=== PATIENT | male | born 1995 | race Two or more races ===

== ENCOUNTER 2022-09-25 18:46 | Emergency (ER) | payer MEDICAID, OTHER ==
[~2022-09-25] VITALS: Ht 177.8 cm; Wt 77.3 kg
[2022-09-25] MEDS ORDERED: CYCL-837 PO (22:40)
[2022-09-25] MEDS ORDERED: IBUP-1456 PO (22:40)
[2022-09-25] MEDS ORDERED: DexAMETHasone SOD PHOS 4 MG/1ML SDV INJ IV ONE (23:45)
[2022-09-26 01:54] VITALS: BP 129/82
== END 2022-09-26 00:24 | disposition short-term general hospital (02) ==
LOC: EDBD 18:46 → ER 18:46
DX: S32.039A Unspecified fracture of third lumbar vertebra, initial encounter for closed fracture (principal); F17.210 Nicotine dependence, cigarettes, uncomplicated; F12.10 Cannabis abuse, uncomplicated; I10 Essential (primary) hypertension; M54.6 Pain in thoracic spine; W01.0XXA Fall on same level from slipping, tripping and stumbling without subsequent striking against object, initial encounter; Y93.89 Activity, other specified; Y92.89 Other specified places as the place of occurrence of the external cause; Y99.8 Other external cause status
CPT/HCPCS: 72128; 72131; 96374; 99285; J1100

== ENCOUNTER 2022-09-30 20:40 | Emergency (ER) | payer MEDICAID ==
[~2022-09-30] VITALS: Ht 177.8 cm; Wt 89.3 kg
[2022-10-01 02:05] VITALS: BP 134/83
[2022-10-01] MEDS ORDERED: IBUPROFEN 800 MG TAB PO ONE (02:45)
== END 2022-10-01 03:00 | disposition home or self-care (01) ==
LOC: ER 20:40
DX: S39.012A Strain of muscle, fascia and tendon of lower back, initial encounter (principal); M25.562 Pain in left knee; M79.672 Pain in left foot; M25.572 Pain in left ankle and joints of left foot; F41.9 Anxiety disorder, unspecified; F32.9 Major depressive disorder, single episode, unspecified; F20.9 Schizophrenia, unspecified; I10 Essential (primary) hypertension; F17.210 Nicotine dependence, cigarettes, uncomplicated; F15.90 Other stimulant use, unspecified, uncomplicated; Z98.890 Other specified postprocedural states; W18.39XA Other fall on same level, initial encounter; Y93.89 Activity, other specified; Y92.89 Other specified places as the place of occurrence of the external cause; Y99.8 Other external cause status
CPT/HCPCS: 72100; 73562; 73610; 73630

== ENCOUNTER 2023-01-24 20:09 | Inpatient (IN) | payer MEDICAID ==
[~2023-01-24] VITALS: Ht 177.8 cm; Wt 98.1 kg
[~2023-01-24 20:09] MED LIST: CYCL-611 PO; IBUP-1455 PO
[2023-01-24 20:55] LABS: Basophils # (auto) 0.1 10 ^3/uL (0-0.2); Basophils % (auto) 1.1 % (0.0-2.0); Eosinophils # (auto) 0.3 10 ^3/uL (0-0.8); Eosinophils % (auto) 3.3 % (0.0-7.0); Hemoglobin 15.7 g/dL (13.5-17.5); Lymphocytes % (auto) 25.4 % (10.0-50.0); Mean Corpuscular Hemoglobin 30.2 pg (28.0-32.0); Mean Corpuscular Hgb Conc. 33.5 g/dL (32.0-36.0); Mean Corpuscular Volume 90.1 fL (80.0-100.0); Monocytes # (auto) 0.6 10 ^3/uL (0-1.3); Neutrophils # (auto) 4.9 10 ^3/uL (1.6-8.6); Neutrophils % (auto) 62.2 % (37.0-80.0); Red Blood Cells 5.22 10^6/uL (4.5-5.90); Red Cell Distribution Width 13.9 % (11.8-14.3); White Blood Cell 7.8 10^3/uL (4.4-10.8)
[2023-01-24 21:10] LABS: Acetaminophen < 2.0 UG/ML (10.0-20.0); Alanine Aminotransferase 92 U/L (7-40); Albumin 4.8 g/dL (3.2-4.8); Alkaline Phosphatase 90 U/L (46-116); Anion Gap 9 (5-15); Aspartate Aminotransferase 44 U/L (13-40); BUN/Creatinine Ratio 7.8 (10.0-20.0); Bilirubin, Total 0.3 mg/dL (0.2-1.0); Blood Alcohol < 3.0 mg/dL (<10); Blood Urea Nitrogen 7 mg/dL (9-23); Calcium 9.7 mg/dL (8.5-10.1); Carbon Dioxide 25 mmol/L (20-30); Chloride 106 mmol/L (98-107); Glucose 133 mg/dL (74-106); Potassium 3.9 mmol/L (3.5-5.1); Sodium 140 mmol/L (136-145); Total Protein 7.6 g/dL (5.7-8.2)
[2023-01-24 21:20] LABS: Salicylate < 3.0 mg/dL (2.8-20.0)
[2023-01-24] MEDS ORDERED: LACTATED RINGER'S 2,000 ML IV ONE (21:45)
[2023-01-24] MEDS ORDERED: ASPirin 325 MG TAB PO ONE (21:45)
[2023-01-24 21:56] LABS: Urine Bacteria NONE SEEN /hpf (None Seen); Urine Blood Negative /uL (Negative); Urine Clarity Clear (Clear); Urine Color Yellow (Yellow); Urine Mucus FEW (None Seen); Urine Protein, UAD Negative (Negative); Urine Specific Gravity 1.018 (1.001-1.035); Urine Urobilinogen Normal (Negative); Urine WBC <1 /hpf (0 - 3)
[2023-01-24] MEDS ORDERED: IOHEXOL 350 MG/ML 100ML IJ ONE (22:19)
[2023-01-24 22:24] LABS: Amphetamine Screen, Urine Neg (NEGATIVE); Barbiturate Scree,Urine Neg (NEGATIVE); Benzodiazephine Screen, Urine Neg (NEGATIVE); Cannabinoid Screen, Urine Neg (NEGATIVE); Cocaine Screen, Urine Neg (NEGATIVE); Opiate Scree,Urine Neg (NEGATIVE); Phencyclidine Screen, Urine Neg (NEGATIVE)
[2023-01-24 23:34] VITALS: PULSE 86; RESP 24; O2SAT 94
[2023-01-25] MEDS ORDERED: ENOXAPARIN SOD 80 MG/0.8ML SYRINGE SC ONE (03:15)
[2023-01-25] MEDS ORDERED: NITROGLYCERIN 0.4 MG SL TAB SL PRN (06:45)
[2023-01-25] MEDS ORDERED: ACETAMINOPHEN 325 MG TAB PO PRN (06:45)
[2023-01-25] MEDS ORDERED: MORPHINE SULFATE INJ 2 MG/ml SYRG IV PRN (06:45)
[2023-01-25] MEDS ORDERED: ONDANSETRON HCL 4 MG/2 ML VIAL IV PRN (06:45)
[2023-01-25] MEDS ORDERED: TEMAZEPAM 15 MG CAP PO PRN (06:45)
[2023-01-25 07:42] VITALS: PULSE 65; RESP 15; O2SAT 95
[2023-01-25] MEDS ORDERED: ASPirin 81 mg TAB PO SCH (10:00)
[2023-01-25] MEDS: risperiDONE 1 MG TAB PO SCH ×2 (10:21→20:36)
[2023-01-25 13:45] VITALS: BP 102/55; PULSE 69; RESP 19; TEMP 97.9; O2SAT 95
[2023-01-25] MEDS ORDERED: BENZ0.5T19 PO (14:31)
[2023-01-25] MEDS ORDERED: RISP2TAB62 PO (14:31)
[2023-01-25 20:00] VITALS: PULSE 68; PULSE 75; RESP 16; O2SAT 98
[2023-01-26 07:30] VITALS: PULSE 75; TEMP 36.6
[2023-01-26] MEDS: risperiDONE 1 MG TAB PO SCH ×2 (08:55→22:38)
[2023-01-26 09:00] VITALS: BP 137/83; PULSE 85; RESP 18; TEMP 97.8; O2SAT 98
[2023-01-26 17:00] VITALS: BP 124/77; PULSE 73; RESP 19; TEMP 98; O2SAT 98
[2023-01-26 20:00] VITALS: PULSE 98
[2023-01-26 22:00] VITALS: BP 122/77; PULSE 77; RESP 19; TEMP 97.8; O2SAT 96
[2023-01-27 05:00] VITALS: BP 102/63; PULSE 75; RESP 19; TEMP 97.5; O2SAT 96
[2023-01-27] MEDS: risperiDONE 1 MG TAB PO SCH ×2 (08:12→08:22)
[2023-01-27 08:56] VITALS: TEMP 36.4
[2023-01-29 09:33] LABS: Hepatitis B Surface Antigen Negative (Negative)
[2023-01-29 09:54] LABS: Hepatitis C Antibody Negative (Negative)
== END 2023-01-27 10:15 | disposition home or self-care (01) | DRG 750 ==
LOC: ER 20:10 → TELE 01-25 06:38 → TELE-CENTR 01-25 12:50
PROVIDERS: ADMIT Nurse Practitioner; ATTEND Family Medicine
DX: F20.9 Schizophrenia, unspecified (principal); I21.A1 Myocardial infarction type 2; K76.0 Fatty (change of) liver, not elsewhere classified; E66.9 Obesity, unspecified; F31.9 Bipolar disorder, unspecified; F17.210 Nicotine dependence, cigarettes, uncomplicated; I10 Essential (primary) hypertension; Z68.31 Body mass index [BMI] 31.0-31.9, adult; Z85.6 Personal history of leukemia; Z98.1 Arthrodesis status; Z91.51 Personal history of suicidal behavior; Z56.0 Unemployment, unspecified
CPT/HCPCS: 36415; 71045; 71275; 80053; 80307; 80320; 80329; 81001; 84484; 85025; 86803; 87081; 87340; 93005; 93306; G0378

== ENCOUNTER 2023-09-13 20:19 | Emergency (ER) | payer MEDICAID ==
[~2023-09-13] VITALS: Ht 177.8 cm; Wt 94.0 kg
[~2023-09-13 20:19] MED LIST changes: +BENZ0.5T19 PO; +RISP2TAB62 PO
[2023-09-13 21:49] LABS: Urine Bacteria None Seen /hpf (None Seen)
[2023-09-13 21:57] LABS: Urine Blood Negative /uL (Negative); Urine Clarity Clear (Clear); Urine Color Colorless (Yellow); Urine Protein, UAD Negative (Negative); Urine Specific Gravity 1.012 (1.001-1.035); Urine Urobilinogen Normal (Negative); Urine WBC 1 /hpf (0 - 3); Urine pH 7.5 (5.0-9.0)
[2023-09-13 21:57] LABS: Basophils # (auto) 0.1 10 ^3/uL (0-0.2); Basophils % (auto) 0.8 % (0.0-2.0); Eosinophils # (auto) 0.5 10 ^3/uL (0-0.8); Eosinophils % (auto) 5.8 % (0.0-7.0); Hematocrit 45.4 % (41.0-53.0); Hemoglobin 15.5 g/dL (13.5-17.5); Lymphocytes # (auto) 2.5 10 ^3/uL (0.4-5.4); Lymphocytes % (auto) 27.5 % (10.0-50.0); Mean Corpuscular Hemoglobin 30.7 pg (28.0-32.0); Mean Corpuscular Hgb Conc. 34.2 g/dL (32.0-36.0); Monocytes # (auto) 0.7 10 ^3/uL (0-1.3); Monocytes % (auto) 8.4 % (0.0-12.0); Neutrophils # (auto) 5.1 10 ^3/uL (1.6-8.6); Neutrophils % (auto) 57.5 % (37.0-80.0); Nucleated Red Blood Cells % 0.1 %; Red Blood Cells 5.05 10^6/uL (4.5-5.90); Red Cell Distribution Width 13.2 % (11.8-14.3); White Blood Cell 8.9 10^3/uL (4.4-10.8)
[2023-09-13 22:07] LABS: Amphetamine Screen, Urine Neg (NEGATIVE); Barbiturate Scree,Urine Neg (NEGATIVE); Benzodiazephine Screen, Urine Neg (NEGATIVE); Cannabinoid Screen, Urine Neg (NEGATIVE); Opiate Scree,Urine Neg (NEGATIVE); Phencyclidine Screen, Urine Neg (NEGATIVE)
[2023-09-13 22:18] LABS: Acetaminophen < 2.0 UG/ML (10.0-20.0); Alanine Aminotransferase 106 U/L (7-40); Albumin 4.6 g/dL (3.2-4.8); Alkaline Phosphatase 99 U/L (46-116); Anion Gap 7 (5-15); Aspartate Aminotransferase 44 U/L (13-40); BUN/Creatinine Ratio 9.4 (10.0-20.0); Bilirubin, Total 0.3 mg/dL (0.2-1.0); Blood Alcohol 3.7 mg/dL (<10); Blood Urea Nitrogen 9 mg/dL (9-23); Carbon Dioxide 22 mmol/L (20-30); Chloride 108 mmol/L (98-107); Glucose 101 mg/dL (74-106); Potassium 3.9 mmol/L (3.5-5.1); Sodium 137 mmol/L (136-145); Total Protein 7.5 g/dL (5.7-8.2)
[2023-09-13 22:19] LABS: Salicylate < 3.0 mg/dL (2.8-20.0)
[2023-09-13 22:20] VITALS: PULSE 64; O2SAT 96
[2023-09-13 23:36] LABS: Cocaine Screen, Urine Neg (NEGATIVE)
[2023-09-14 00:30] VITALS: PULSE 64; O2SAT 96
[2023-09-14 04:30] VITALS: PULSE 64; O2SAT 96
[2023-09-14] MEDS: OLANZapine 5 MG TAB PO ONE (04:42)
[2023-09-14 06:49] VITALS: BP 140/82; PULSE 90; RESP 16; TEMP 98.2; O2SAT 97
== END 2023-09-14 07:25 | disposition home or self-care (01) ==
LOC: ER 20:19
DX: R44.0 Auditory hallucinations (principal); F41.9 Anxiety disorder, unspecified; I10 Essential (primary) hypertension; F31.9 Bipolar disorder, unspecified; F17.210 Nicotine dependence, cigarettes, uncomplicated; F12.10 Cannabis abuse, uncomplicated
CPT/HCPCS: 36415; 80053; 80307; 80320; 80329; 81001; 85025

== ENCOUNTER 2023-10-01 19:36 | Emergency (ER) | payer MEDICAID ==
[~2023-10-01] VITALS: Ht 177.8 cm; Wt 90.0 kg
[2023-10-01 20:18] LABS: Urine Bacteria None Seen /hpf (None Seen)
[2023-10-01 20:49] LABS: Urine Blood Negative /uL (Negative); Urine Clarity Clear (Clear); Urine Color Yellow (Yellow); Urine Mucus MODERATE (None Seen); Urine Protein, UAD TRACE (Negative); Urine Specific Gravity 1.028 (1.001-1.035); Urine Urobilinogen 2 mg/dL (Negative); Urine WBC 2 /hpf (0 - 3)
[2023-10-01 20:52] LABS: Basophils # (auto) 0.1 10 ^3/uL (0-0.2); Basophils % (auto) 0.4 % (0.0-2.0); Eosinophils # (auto) 0.2 10 ^3/uL (0-0.8); Hematocrit 45.4 % (41.0-53.0); Hemoglobin 15.4 g/dL (13.5-17.5); Lymphocytes # (auto) 1.8 10 ^3/uL (0.4-5.4); Lymphocytes % (auto) 12.1 % (10.0-50.0); Mean Corpuscular Hemoglobin 30.4 pg (28.0-32.0); Mean Corpuscular Volume 89.5 fL (80.0-100.0); Monocytes # (auto) 1.4 10 ^3/uL (0-1.3); Monocytes % (auto) 9.3 % (0.0-12.0); Neutrophils # (auto) 11.4 10 ^3/uL (1.6-8.6); Neutrophils % (auto) 77.2 % (37.0-80.0); Red Blood Cells 5.08 10^6/uL (4.5-5.90); Red Cell Distribution Width 13.2 % (11.8-14.3); White Blood Cell 14.8 10^3/uL (4.4-10.8)
[2023-10-01 21:04] LABS: Chloride 106 mmol/L (98-107); Potassium 3.8 mmol/L (3.5-5.1); Sodium 133 mmol/L (136-145)
[2023-10-01 21:05] LABS: Anion Gap 10 (5-15); Carbon Dioxide 17 mmol/L (20-30)
[2023-10-01 21:10] LABS: BUN/Creatinine Ratio 8.8 (10.0-20.0); Blood Urea Nitrogen 8 mg/dL (9-23); Glucose 109 mg/dL (74-106)
[2023-10-02] MEDS: SODIUM CHLORIDE 0.9% 1,000 ML IV ONE (01:01)
[2023-10-02] MEDS: METOCLOPRAMIDE HCL 5MG/ml INJ 2ml VIAL IV ONE (01:01)
[2023-10-02] MEDS: KETOROLAC TROMETH 30 MG/ML 1ML VIAL IV ONE (01:01)
[2023-10-02 01:02] VITALS: BP 141/95; PULSE 110; RESP 18; O2SAT 97
== END 2023-10-02 01:44 | disposition home or self-care (01) ==
LOC: ER 19:36
DX: G43.909 Migraine, unspecified, not intractable, without status migrainosus (principal); B34.9 Viral infection, unspecified; I10 Essential (primary) hypertension; F41.9 Anxiety disorder, unspecified; F20.9 Schizophrenia, unspecified; F31.9 Bipolar disorder, unspecified; F17.210 Nicotine dependence, cigarettes, uncomplicated; F15.90 Other stimulant use, unspecified, uncomplicated; Z79.899 Other long term (current) drug therapy
CPT/HCPCS: 36415; 80048; 81001; 85025; 96361; 96374; 96375; 99284; J1885; J2765; J7030

== ENCOUNTER 2024-06-24 19:57 | Inpatient (IN) | payer MEDICAID ==
[~2024-06-24] VITALS: Ht 175.3 cm; Wt 95.6 kg
[~2024-06-24 19:57] MED LIST changes: +BENZ0.5T PO; -BENZ0.5T19 PO
--- NOTE | 2024-06-24 20:15 | ED.PDOC ---
Jung. trauma (HPI) HPI Comments 29-year-old male came to the ER via EMS for back pain. Patient has history of schizophrenia and 1. Post surgical changes related to posterior fusion of L1- L5., 2. L3 vertebral body compression deformity with sclerosis, 60% height loss, and mild retropulsion. This is age indeterminant but felt to be chronic. States he other ground level fall earlier, slipped and fell backwards landing badly on his lower back and hip area Chief Complaint: Back Pain Time Seen by MD: 20:37 Primary Care Provider: NONE Reviewed notes: Career Development Specialist Notes Allergies: Coded Allergies: NO KNOWN ALLERGIES (Unverified , 09/25/22) Home Meds Active Scripts Gabapentin (Once-Daily) (Gabapentin) 300 Mg Tab, 300 MG PO Q6HP PRN, #60 TAB Prov:MIK LOWRY MD 06/25/24 Cyclobenzaprine HCl (Cyclobenzaprine Hydrochlo) 10 Mg Tab, 1 TAB PO Q8HR, #15 TAB As needed for muscle spasm Prov:BHAVANI FERRARA NEUROPSYCHOLOGY DIRECTOR 01/14/23 Ibuprofen Micronized (Ibuprofen) 800 Mg Tab, 1 TAB PO Q8HR, #30 TAB As needed for pain take it with food Prov:BHAVANI FERRARA Q NEUROPSYCHOLOGY DIRECTOR 01/14/23 Reported Medications Benztropine Mesylate (Benztropine Mesylate) 0.5 Mg Tab, 1 TAB PO 01/25/23 Risperidone (Risperidone) 2 Mg Tab, 1 TAB PO 01/25/23 Information Source: Patient, Emergency Med Personnel Mode of Arrival: EMS Severity: Moderate Timing: Hours Duration: Since onset Location: Back Mechanism: Fall Past Medical History PAST MEDICAL HISTORY: Anxiety, Depression, HTN, Schizophrenia Past Medical History (Other): 1. Post surgical changes related to posterior fusion of L1-L5. 2. L3 vertebral body compression deformity with sclerosis, 60% height loss, and mild retropulsion. This is age indeterminant but felt to be chronic. Surgical History: Denies all surgeries Surgical History (Other): Back surgery Family History Family History: Reviewed,noncontributory to illness Social History Smoker: Cigarettes, Less Than 1 Pack/Day Alcohol: Denies ETOH Use Drugs: Marijuana Lives In: Home Constitutional: denies: chills, diaphoresis, fatigue, fever, malaise, sweats, weakness, others EENTM: denies: blurred vision, double vision, ear bleeding, ear discharge, ear drainage, ear pain, ear ringing, eye pain, eye redness, hearing loss, mouth pain, mouth swelling, nasal discharge, nose bleeding, nose congestion, nose pain, photophobia, tearing, throat pain, throat swelling, voice changes, others Respiratory: denies: cough, hemoptysis, orthopnea, SOB at rest, shortness of breath, SOB with excertion, stridor, wheezing, others Cardiovascular: denies: chest pain, dizzy spells, diaphoresis, Dyspnea on exertion, edema, irregular heart beat, left arm pain, lightheadedness, palpitations, PND, syncope, others Gastrointestinal: denies: abdomen distended, abdominal pain, blood streaked bowels, constipated, diarrhea, dysphagia, difficulty swallowing, hematemesis, melena, nausea, poor appetite, poor fluid intake, rectal bleeding, rectal pain, vomiting, others Genitourinary: denies: burning, dysuria, flank pain, frequency, hematuria, incontinence, penile discharge, penile sore, pain, testicle pain, testicle swelling, urgency, others Neurological: denies: dizziness, fainting, headache, left sided numbness, left sided weakness, numbness, paresthesia, pre-existing deficit, right sided numbness, right sided weakness, seizure, speech problems, tingling, tremors, weakness, others Musculoskeletal: reports: back pain; denies: gout, joint pain, joint swelling, muscle pain, muscle stiffness, neck pain, others Integumetry: denies: bruises, change in color, change in hair/nails, dryness, laceration, lesions, lumps, rash, wounds, others Allergic/Immunocompromised: denies: Difficulty Healing, Frequent Infections, Hives, Itching, others Hematologic/Lymphatic: denies: anemia, blood clots, easy bleeding, easy bruising, swollen glands, others Endocrine: denies: excessive hunger, excessive sweating, excessive thirst, excessive urination, flushing, intolerance to cold, intolerance to heat, unexplained weight gain, unexplained weight loss, others Psychiatric: reports: schizophrenia; denies: anxiety, bipolar disorder, depression, hopeless, panic disorder, sleepless, suicidal, others Physical Exam General Appearance: No Apparent Distress, Normal HEENT: Normal ENT Inspection, Pharynx Normal, TMs Normal Neck: Full Range of Motion, Non-Tender, Normal, Normal Inspection Respiratory: Chest Non-Tender, Lungs Clear, No Accessory Muscle Use, No Respiratory Distress, Normal Breath Sounds Cardiovascular: No Edema, No JVD, No Murmur, No Gallop, Normal Peripheral P ulses, Regular Rate/Rhythm Breast Exam: Deferred Gastrointestinal: No Organomegaly, Non Tender, No Pulsatile Mass, Normal Bowel Sounds, Soft Genitalia: Deferred Pelvic: Deferred Rectal: Deferred Extremities: No calf tenderness, Normal capillary refill, Normal inspection, Normal range of motion, Non-tender, No pedal edema Musculoskeletal : Apperance: Normal Neurologic: Alert, curing oven attendant II-XII nml as Tested, No Motor Deficits, Normal Affect, Normal Mood, No Sensory Deficits Cerebellar Function: Normal Reflexes: Normal Skin: Dry, Normal Color, Warm Lymphatic: No Adenopathy Was a procedure done? Was a procedure done?: No Differential Diagnosis Multiple Trauma: Fractures, Spine Injury Neck Injury: Spinal Cord Injury X-Ray, Labs, Meds, VS Vital Signs Date Time Temp Pulse Resp B/P (MAP) Pulse Ox O2 Delivery O2 Flow Rate FiO2 06/25/24 00:47 98 18 97 Room Air* 0 21 06/25/24 00:47 98.2 98 18 127/85 (99) 97 98.2 06/24/24 20:06 98.1 102 20 148/92 (110) 98 98.1 Current Medications Medications (Trade) Dose Ordered Sig/Rosalie Route Start Time Stop Time Status Last Admin Ibuprofen (Motrin Tablet) 400 mg ONCE ONCE PO 06/24/24 20:15 06/24/24 20:16 DC 06/25/24 00:19 Acetaminophen/ Hydrocodone Bitart (Benedicta 10/325MG Tab) 1 tab ONCE ONCE PO 06/25/24 00:45 06/25/24 00:46 DC 06/25/24 01:21 Time of 1ST Reevaluation: 02:31 Reevaluation 1ST: Unchanged Patient Education/Counseling: Diagnosis, Treatment Family Education/Counseling: No Family Present Departure 1 Departure Time of Disposition: 02:31 Impression: Primary Impression: Lumbar sprain Additional Impressions: Lumbar compression fracture Schizophrenia Disposition: 01 HOME / SELF CARE / HOMELESS Condition: Stable e-Prescriptions Gabapentin (Once-Daily) (Gabapentin) 300 Mg Tab 300 MG PO Q6HP PRN, #60 TAB Prov: MIK LOWRY MD 06/25/24 Discharged With: Self Comments Low Back Pain After Ground-Level Fall Chief Complaint: Low back pain after fall History of Present Illness: 29-year-old male with history of schizophrenia and previous lumbar vertebral compression fracture presents to the ED with complaints of low back pain following a ground-level trip and fall that occurred last night. Patient reports ongoing back discomfort on reevaluation and has requested social work consultation. Review of Systems: Limited review of systems due to nature of presentation Musculoskeletal: Low back pain Neurological: Alert and oriented All other systems reviewed and negative Past Medical History: Schizophrenia Previous lumbar vertebral compression fracture Imaging and Other Relevant Results: Lumbar spine X-rays: No acute pathology identified Previous compression fracture noted Medical Decision Making: Summary Statement: 29-year-old male with history of schizophrenia and previous compression fracture presents with low back pain after ground-level fall Problem List: 1. Low back pain, 2. History of vertebral compression fracture, 3. Schizophrenia Differential Diagnosis: Acute vertebral fracture, Muscle strain, Exacerbation of chronic back pain, Spinal cord injury ED Course: Patient evaluated with spinal imaging showing no acute pathology. Plan for overnight observation and social work evaluation in morning. Assessment and Plan: 1. Low Back Pain: - Imaging reveals no acute pathology - Continue observation overnight - Pain management as needed 2. Functional Assessment: - Social work consultation planned for morning to evaluate ADLs - Will determine disposition based on functional assessment Billing Information: ICD-10: M54.5 - Low back pain ICD-10: W01.0XXA - Fall on same level from slipping, tripping and stumbling ICD-10: F20.9 - Schizophrenia, unspecified ICD-10: M48.50XA - History of vertebral compression fracture Critical Care Note Critical Care Time?: No Stability Stability form required: No Heart Score Heart Score: Heart Score Response (Comments) Value History N/A 0 EKG N/A 0 Age N/A 0 Risk Factors N/A 0 Troponin N/A 0 Total 0 I personally scribed for MIK LOWRY MD ([email or web address]) on 06/24/24 at 20:15. Electronically submitted by Kervin Yusuf ([facility]). I personally scribed for MIK LOWRY MD ([email or web address]) on 06/24/24 at 20:37. Electronically submitted by Kervin Yusuf ([email or web address]). MIK LOWRY MD Jun 24, 2024 20:15
--- NOTE | 2024-06-24 22:25 | DVH ---
XY PELVIS AP June 24, 2024 HISTORY: pain s/p fall TECHNICAL DATA: Frontal view was obtained of the pelvis. COMPARISON: None FINDINGS: There is no abnormality involving the bony pelvis. The sacroiliac joints appear normal. There is no a bnormality of the symphysis pubis. The hip joint spaces are symmetric. The proximal femurs demonstrat e no abnormality. IMPRESSION: 1. No acute fracture or dislocation of the pelvis.
--- NOTE | 2024-06-24 22:30 | DVH ---
EXAM: XY LUMBAR SPINE 3 VIEW HISTORY: pain s/p fall COMPARISON: XY LUMBAR SPINE 3 VIEW on DOS: 01/14/23, XY LUMBAR SPINE 3 VIEW on DOS: 10/01/22 TECHNIQUE: AP and lateral views of the lumbar spine and spot lateral of the lumbosacral junction were performed. Findings/ IMPRESSION: Posterior fixation hardware of the lumbar spine from L1-L5. [id number] compression deformity i nvolving the superior endplate of L3 which is unchanged from prior.
[2024-06-25] VITALS (7 sets, daily range): BP systolic 100–127; BP diastolic 45–91; PULSE 84–98; RESP 15–18; TEMP 97.5–98.7; O2SAT 97–98
[2024-06-25] MEDS ORDERED: GABA300T4 PO (00:09)
[2024-06-25] MEDS: IBUPROFEN 400 MG TAB PO ONE (00:19)
[2024-06-25] MEDS: HYDROcodone-ACET 10/325MG TAB PO ONE (01:21)
--- NOTE | 2024-06-25 09:38 | ED.PDOC ---
Departure 1 Departure Time of Disposition: 09:38 (Patient with intractable pain and inability to ambulate. We will admit patient for further workup) Impression: Primary Impression: Lumbar sprain Qualified Codes: S33.5XXA - Sprain of ligaments of lumbar spine, initial encounter Additional Impressions: Schizophrenia Qualified Codes: F20.9 - Schizophrenia, unspecified Lumbar compression fracture Qualified Codes: S32.030A - Wedge compression fracture of third lumbar vertebra, initial encounter for closed fracture Disposition: ADMITTED INPATIENT Admit to: Med Surg Condition: Serious Additional Instructions: Follow up with your primary physician Return to the ED for any worsening symptoms or concerns e-Prescriptions Gabapentin (Once-Daily) (Gabapentin) 300 Mg Tab 300 MG PO Q6HP PRN, #60 TAB Prov: MIK LOWRY MD 06/25/24 Discharged With: OK Sharp MD Jun 25, 2024 09:38
[2024-06-25 10:23] LABS: Basophils # (auto) 0 10 ^3/uL (0-0.2); Basophils % (auto) 0.6 % (0.0-2.0); Eosinophils # (auto) 0.3 10 ^3/uL (0-0.8); Eosinophils % (auto) 3.4 % (0.0-7.0); Hematocrit 43.7 % (41.0-53.0); Lymphocytes # (auto) 1.9 10 ^3/uL (0.4-5.4); Lymphocytes % (auto) 25.3 % (10.0-50.0); Mean Corpuscular Hemoglobin 30.6 pg (28.0-32.0); Mean Corpuscular Hgb Conc. 34.3 g/dL (32.0-36.0); Mean Corpuscular Volume 89.3 fL (80.0-100.0); Monocytes # (auto) 0.7 10 ^3/uL (0-1.3); Monocytes % (auto) 9.1 % (0.0-12.0); Neutrophils # (auto) 4.5 10 ^3/uL (1.6-8.6); Neutrophils % (auto) 61.6 % (37.0-80.0); Platelet Count (auto) 243 10^3/uL (140-450); Red Blood Cells 4.89 10^6/uL (4.5-5.90); Red Cell Distribution Width 13.4 % (11.8-14.3); White Blood Cell 7.3 10^3/uL (4.4-10.8)
[2024-06-25 10:34] LABS: Chloride 106 mmol/L (98-107); Potassium 3.9 mmol/L (3.5-5.1); Sodium 141 mmol/L (136-145)
[2024-06-25 10:35] LABS: Anion Gap 7 (5-15); Calcium 9.7 mg/dL (8.7-10.4); Carbon Dioxide 28 mmol/L (20-31)
[2024-06-25 10:40] LABS: BUN/Creatinine Ratio 10.6 (10.0-20.0); Blood Urea Nitrogen 10 mg/dL (9-23); Glucose 90 mg/dL (74-106)
[2024-06-25] MEDS ORDERED: ONDANSETRON HCL 4 MG/2 ML VIAL IV PRN (11:30)
[2024-06-25] MEDS ORDERED: HYDROcodone-ACET 5/325MG TAB PO PRN (11:30)
[2024-06-25] MEDS ORDERED: DOCUSATE SOD 100 MG CAP PO PRN (11:30)
[2024-06-25] MEDS ORDERED: ACETAMINOPHEN 325 MG TAB PO PRN (11:30)
--- NOTE | 2024-06-25 11:46 | DVHHP2 ---
History of Present Illness Reason for Visit: Back pain History of Present Illness Yefri Evangelista is a 29-year-old male with past medical history of chronic back pain, and schizophrenia, who came in for back pain. On assessment the patient states he came in for paralysis and numbness tingling to his back and bilateral legs, worse on the right. I asked him to push on my hands and lift his legs and he did both without any trouble. He is able to reposition in the bed on his own without any difficulty or discomfort. Patient is not consistent on his medical history. States he is not taking any medications at this time, that he may have diabetes, but he can not remember. Psych: Schizophrenia Musculoskeletal: Chronic low back pain Past Surgical History: Other (back surgery) Smoke: <1 pack per day ALCOHOL: none Drugs: None Lives: with Family Domestic Violence: Neg Review of Systems Constitutional: No: Fever, Chills, Sweats, Weakness, Malaise, Other Eyes: No: Pain, Vision change, Conjunctivae inflammation, Eyelid inflammation, Other, Redness ENT: No: Ear pain, Ear discharge, Nose pain, Nose discharge, Nose congestion, Mouth pain, Mouth swelling, Throat pain, Throat swelling, Other Respiratory: No: Cough, Dry, Shortness of breath, SOB with excertion, Wheezing, Hemoptysis, Pleuritic Pain, Sputum, Wheezing, Other Cardiovascular: No: Chest Pain, Palpitations, Orthopnea, Paroxysmal Noc. Dyspnea, Edema, Lt Headedness, Other Gastrointestinal: No: Nausea, Vomiting, Abdominal Pain, Diarrhea, Constipation, Melena, Hematochezia, Other Genitourinary: No Dysuria, No Frequency, No Incontinence, No Hematuria, No Retention, No Other Musculoskeletal: back pain; No: other, neck pain, shoulder pain, arm pain, hand pain, leg pain, foot pain Skin: No: Rash, Lesions, Jaundice, Bruising, Other Neurological: No: Weakness, Numbness, Incoordination, Change in speech, Confusion, Seizures, Other Allergies: Coded Allergies: NO KNOWN ALLERGIES (Unverified , 09/25/22) Exam Vital Signs Vital Signs Date Time Temp Pulse Resp B/P (MAP) Pulse Ox O2 Delivery O2 Flow Rate FiO2 06/25/24 08:52 97.6 89 15 104/54 (71) 97 97.6 06/25/24 07:30 Room Air* 0 21 General Appearance: Alert, Oriented X3, Cooperative, No acute distress HEENT: Atraumatic, PERRLA Respiratory: Clear to auscultation Cardiovascular: Regular rate, Normal S1, Normal S2 Abdominal: Normal bowel sounds, Soft, No tenderness Extremities: No clubbing, No cyanosis, No edema, Normal pulses, No tenderness/swelling Skin: No rashes, No breakdown, No significant lesion Neuro: Normal speech, Strength at 5/5 X4 ext, Normal tone Psych/Mental Status: Mental status NL, Mood NL Labs/Xrays Labs Test 06/25/24 10:02 Range/Units White Blood Count 7.3 4.4-10.8 10^3/uL Red Blood Count 4.89 4.5-5.90 10^6/uL Hemoglobin 15.0 13.5-17.5 g/dL Hematocrit 43.7 41.0-53.0 % Mean Corpuscular Volume 89.3 80.0-100.0 fL Mean Corpuscular Hemoglobin 30.6 28.0-32.0 pg Mean Corpuscular Hemoglobin Concent 34.3 32.0-36.0 g/dL Red Cell Distribution Width 13.4 11.8-14.3 % Platelet Count 243 140-450 10^3/uL Mean Platelet Volume 8.1 6.9-10.8 fL Neutrophils (%) (Auto) 61.6 37.0-80.0 % Lymphocytes (%) (Auto) 25.3 10.0-50.0 % Monocytes (%) (Auto) 9.1 0.0-12.0 % Eosinophils (%) (Auto) 3.4 0.0-7.0 % Basophils (%) (Auto) 0.6 0.0-2.0 % Neutrophils # (Auto) 4.5 1.6-8.6 10 ^3/uL Lymphocytes # (Auto) 1.9 0.4-5.4 10 ^3/uL Monocytes # (Auto) 0.7 0-1.3 10 ^3/uL Eosinophils # (Auto) 0.3 0-0.8 10 ^3/uL Basophils # (Auto) 0 0-0.2 10 ^3/uL Nucleated Red Blood Cells 0.0 % Sodium Level 141 136-145 mmol/L Potassium Level 3.9 3.5-5.1 mmol/L Chloride Level 106 98-107 mmol/L Carbon Dioxide Level 28 20-31 mmol/L Anion Gap 7 5-15 Blood Urea Nitrogen 10 9-23 mg/dL Creatinine 0.94 0.700-1.30 mg/dL Glomerular Filtration Rate Calc 111 >90 mL/min BUN/Creatinine Ratio 10.6 10.0-20.0 Serum Glucose 90 74-106 mg/dL Calcium Level 9.7 8.7-10.4 mg/dL XY PELVIS AP June 24, 2024 FINDINGS: There is no abnormality involving the bony pelvis. The sacroiliac joints appear normal. There is no abnormality of the symphysis pubis. The hip joint spaces are symmetric. The proximal femurs demonstrate no abnormality. IMPRESSION: 1. No acute fracture or dislocation of the pelvis. EXAM: XY LUMBAR SPINE 3 VIEW Findings/ IMPRESSION: Posterior fixation hardware of the lumbar spine from L1-L5. [id number] compression deformity involving the superior endplate of L3 which is unchanged from prior. Assessment/Plan Assessment/Plan Assessment: Lumbar compression fracture, Intractable pain, Schizophrenia, Plan: Admit to Med-Surg, Pain management, Tele psych consult, Physical therapy consult, Plan discussed with: Patient My Orders Orders - RAJAT GREEN Procedure Category Date Status Time Soc Telemed Psych CONS 06/25/24 Transmitted Consult 11:23 Admit ADMIT 06/25/24 Transmitted 11:23 Code Status CODE 06/25/24 Transmitted 11:23 2 Gm Sodium Diet DIET 06/25/24 Transmitted Lunch Sodium Chloride Lock PHA 06/25/24 Transmitted (Saline Lock Ns) 14:00 Hydrocodone-Acet PHA 06/25/24 Transmitted 5/325mg Tab ([place] 11:30 Ondansetron Hcl PHA 06/25/24 Transmitted (Zofran) 11:30 Docusate Sodium PHA 06/25/24 Transmitted Capsule (Colace 11:30 Complete Blood Count LAB 06/26/24 Verified 04:00 Comprehensive LAB 06/26/24 Verified Metabolic Panel 04:00 Pt Request For Service PT 06/25/24 Transmitted 11:23 Condition: Serious JACLYN 06/25/24 Transmitted 11:23 Acetaminophen Tablet PHA 06/25/24 Transmitted (Tylenol Tablet) 11:30 Date of Service: Jun 25, 2024 Billing Provider: RAJAT GREEN Common Visit Codes: [id number] INP/OBS CARE (MOD) RAJAT GREEN OCEAN LIFEGUARD SPECIALIST Jun 25, 2024 11:46
[2024-06-25] MEDS: SODIUM CHLOR 0.9% PF (SALINE LOCK) 10ML VIAL/SYR IV SCH (14:00)
[2024-06-26] VITALS (7 sets, daily range): BP systolic 98–144; BP diastolic 58–86; PULSE 65–97; RESP 16–20; TEMP 97.5–98.6; O2SAT 92–98
[2024-06-26 06:59] LABS: Albumin 4.1 g/dL (3.2-4.8); Alkaline Phosphatase 80 U/L (46-116); Anion Gap 6 (5-15); Aspartate Aminotransferase 35 U/L (13-40); BUN/Creatinine Ratio 11.5 (10.0-20.0); Blood Urea Nitrogen 11 mg/dL (9-23); Calcium 9.4 mg/dL (8.7-10.4); Carbon Dioxide 26 mmol/L (20-31); Glucose 95 mg/dL (74-106); Potassium 4.1 mmol/L (3.5-5.1); Sodium 140 mmol/L (136-145); Total Protein 6.5 g/dL (5.7-8.2)
[2024-06-26 07:00] LABS: Bilirubin, Total 0.5 mg/dL (0.2-1.0)
[2024-06-26 07:02] LABS: Basophils # (auto) 0.1 10 ^3/uL (0-0.2); Basophils % (auto) 0.7 % (0.0-2.0); Eosinophils # (auto) 0.4 10 ^3/uL (0-0.8); Eosinophils % (auto) 5.1 % (0.0-7.0); Hemoglobin 14.5 g/dL (13.5-17.5); Lymphocytes # (auto) 2.1 10 ^3/uL (0.4-5.4); Lymphocytes % (auto) 28.9 % (10.0-50.0); Mean Corpuscular Hemoglobin 31.4 pg (28.0-32.0); Mean Corpuscular Hgb Conc. 34.4 g/dL (32.0-36.0); Mean Corpuscular Volume 91.4 fL (80.0-100.0); Monocytes # (auto) 0.7 10 ^3/uL (0-1.3); Monocytes % (auto) 10.1 % (0.0-12.0); Neutrophils % (auto) 55.2 % (37.0-80.0); Nucleated Red Blood Cells % 0.1 %; Platelet Count (auto) 224 10^3/uL (140-450); Red Cell Distribution Width 13.4 % (11.8-14.3); White Blood Cell 7.2 10^3/uL (4.4-10.8)
[2024-06-26 07:06] LABS: Alanine Aminotransferase 69 U/L (7-40); Chloride 108 mmol/L (98-107)
--- NOTE | 2024-06-26 15:59 | DVHPN2 ---
Subjective Resuming the care of the patient from today onwards. 29-year-old male with a known history of chronic back pain with previous lumbar spine surgery L1 through 5 presented to the hospital after a fall found to have lumbar compression deformity at L3 level. Patient also has a known history of schizophrenia but currently not on any medications. Changes from previous H/P or p: No Changes Eyes: No Pain, No Vision change, No Conjunctivae inflammation, No Eyelid inflammation, No Other, No Redness ENT: No Ear pain, No Ear discharge, No Nose pain, No Nose discharge, No Nose congestion, No Mouth pain, No Mouth swelling, No Throat pain, No Throat swelling, No Other Cardiovascular: No Chest Pain, No Palpitations, No Orthopnea, No Paroxysmal Noc. Dyspnea, No Edema, No Lt Headedness, No Other Respiratory: No Cough, No Dry, No Shortness of breath, No SOB with excertion, No Wheezing, No Hemoptysis, No Pleuritic Pain, No Sputum, No Other Gastrointestinal: No Nausea, No Vomiting, No Abdominal Pain, No Diarrhea, No Constipation, No Melena, No Hematochezia, No Other Genitourinary: No Dysuria, No Frequency, No Incontinence, No Hematuria, No Retention, No Other Musculoskeletal: No other, No neck pain, No shoulder pain, No arm pain; back pain; No hand pain, No leg pain, No foot pain Skin: No Rash, No Lesions, No Jaundice, No Bruising, No Other Objective Vitals Vital Signs Date Time Temp Pulse Resp B/P (MAP) Pulse Ox O2 Delivery O2 Flow Rate FiO2 06/26/24 13:30 97.6 81 16 142/86 (104) 97 97.6 06/26/24 08:00 Room Air* 0 21 Intake/Output Intake and Output 06/26/24 07:00 Intake Total 1475 ml Output Total 0 ml Balance 1475 ml Intake Oral 1475 ml Output Urine Total 0 ml # Voids 1 Exam HEENT pupils are reactive Neck is supple CV is S1-S2 regular rate and rhythm Respiratory bilateral Diminished breath sounds bases GI positive bowel sound Extremity no pedal edema 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 Medications Current Medications Medications Dose Ordered Sig/Rosalie Route Start Time Stop Time Status Last Admin Dose Admin Sodium Chloride 10 ml Q8HR IV 06/25/24 14:00 06/26/24 14:00 10 ML Acetaminophen/ Hydrocodone Bitart 1 tab Q4HP PRN PO 06/25/24 11:30 Ondansetron HCl 4 mg Q4HP PRN IV 06/25/24 11:30 Docusate Sodium 100 mg BIDPRN PRN PO 06/25/24 11:30 Acetaminophen 650 mg Q6HP PRN PO 06/25/24 11:30 Laboratory Results Laboratory Tests 06/26/24 06:03 Chemistry Test 06/26/24 06:03 Albumin 4.1 g/dL (3.2-4.8) Calcium Level 9.4 mg/dL (8.7-10.4) Total Protein 6.5 g/dL (5.7-8.2) LFT Test 06/26/24 06:03 Alanine Aminotransferase (ALT) 69 U/L (7-40) H Alkaline Phosphatase 80 U/L (46-116) Aspartate Amino Transferase (AST) 35 U/L (13-40) Total Bilirubin 0.5 mg/dL (0.2-1.0) Assessment/Plan Assessment/Plan 29-year-old male with known history of chronic back pain presented to the hospital with intractable back there found to have 1. Acute on chronic back pain with L3 compression deformity 2. Previous history of lumbar spine surgery L1 through 5 3. Schizophrenia 4. Noncompliance -continue pain meds as needed, tele psych evaluation -consult spine surgery. Plan discussed with: Patient, Other My Orders Orders - SUSHANT FLORES MD Procedure Category Date Status Time Consultdr. Jose Martin CONS 06/26/24 Transmitted [place](Spine) 14:03 Date of Service: Jun 26, 2024 Billing Provider: SUSHANT FLORES MD Common Visit Codes: [id number] INP/OBS CARE(MOD), NOT BILLABLE SUSHANT FLORES MD Jun 26, 2024 15:59
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
[2024-06-26] MEDS: risperiDONE 1 MG TAB PO ONE (20:02)
[2024-06-27] VITALS (8 sets, daily range): BP systolic 108–130; BP diastolic 62–82; PULSE 74–106; RESP 18–20; TEMP 97.4–98.8; O2SAT 95–99
[2024-06-27] MEDS: risperiDONE 1 MG TAB PO SCH (09:46)
--- NOTE | 2024-06-27 18:01 | DVHPN2 ---
Subjective 29-year-old male with a known history of chronic back pain with previous lumbar spine surgery L1 through 5 presented to the hospital after a fall found to have lumbar compression deformity at L3 level. Patient also has a known history of schizophrenia but currently not on any medications. Tele psych recommended 5150 hold because of patient's agitation and acute psychosis with schizophrenia. Changes from previous H/P or p: No Changes Eyes: No Pain, No Vision change, No Conjunctivae inflammation, No Eyelid inflammation, No Other, No Redness ENT: No Ear pain, No Ear discharge, No Nose pain, No Nose discharge, No Nose congestion, No Mouth pain, No Mouth swelling, No Throat pain, No Throat swelling, No Other Cardiovascular: No Chest Pain, No Palpitations, No Orthopnea, No Paroxysmal Noc. Dyspnea, No Edema, No Lt Headedness, No Other Respiratory: No Cough, No Dry, No Shortness of breath, No SOB with excertion, No Wheezing, No Hemoptysis, No Pleuritic Pain, No Sputum, No Other Gastrointestinal: No Nausea, No Vomiting, No Abdominal Pain, No Diarrhea, No Constipation, No Melena, No Hematochezia, No Other Genitourinary: No Dysuria, No Frequency, No Incontinence, No Hematuria, No Retention, No Other Musculoskeletal: No other, No neck pain, No shoulder pain, No arm pain; back pain; No hand pain, No leg pain, No foot pain Skin: No Rash, No Lesions, No Jaundice, No Bruising, No Other Objective Vitals Vital Signs Date Time Temp Pulse Resp B/P (MAP) Pulse Ox O2 Delivery O2 Flow Rate FiO2 06/27/24 13:00 97.4 82 18 125/62 (83) 97 97.4 06/27/24 08:00 Room Air* 0 21 Intake/Output Intake and Output 06/27/24 07:00 Intake Total 1200 ml Balance 1200 ml Intake Oral 1200 ml # Voids 6 # Bowel Movements 1 Medications Current Medications Medications Dose Ordered Sig/Rosalie Route Start Time Stop Time Status Last Admin Dose Admin Sodium Chloride 10 ml Q8HR IV 06/25/24 14:00 06/26/24 14:00 10 ML Acetaminophen/ Hydrocodone Bitart 1 tab Q4HP PRN PO 06/25/24 11:30 Ondansetron HCl 4 mg Q4HP PRN IV 06/25/24 11:30 Docusate Sodium 100 mg BIDPRN PRN PO 06/25/24 11:30 Acetaminophen 650 mg Q6HP PRN PO 06/25/24 11:30 Risperidone 2 mg DAILY PO 06/27/24 10:00 06/27/24 09:46 2 MG Laboratory Results Laboratory Tests 06/26/24 06:03 Assessment/Plan Assessment/Plan 29-year-old male with known history of chronic back pain presented to the hospital with intractable back there found to have 1. Acute on chronic back pain with L3 compression deformity no indication for any intervention as per spine surgery 2. Previous history of lumbar spine surgery L1 through 5 3. Schizophrenia 4. Noncompliance -continue pain meds as needed, tele psych evaluation appreciated who recommended 5150 hold -patient was medically as well as by spine surgery cleared to be discharged to acute care facility in the inpatient psychiatry. Plan discussed with: Patient My Orders Orders - SUSHANT FLORES MD Procedure Category Date Status Time Discharge DISCHARGE 06/27/24 Transmitted 17:56 Date of Service: Jun 27, 2024 Billing Provider: SUSHANT FLORES MD Common Visit Codes: [id number] INP/OBS CARE(MOD) SUSHANT FLORES MD Jun 27, 2024 18:01
[2024-06-28 01:00] VITALS: BP 121/67; PULSE 78; RESP 24; TEMP 97.7; O2SAT 96
[2024-06-28 05:00] VITALS: BP 110/54; PULSE 74; RESP 16; TEMP 97.6; O2SAT 96
[2024-06-28 09:00] VITALS: BP 135/75; PULSE 99; RESP 18; TEMP 97.6; O2SAT 97
[2024-06-28 13:00] VITALS: BP 120/65; PULSE 90; RESP 17; TEMP 97.5; O2SAT 98
--- NOTE | 2024-06-28 15:15 | DVHPN2 ---
Subjective 29-year-old male with a known history of chronic back pain with previous lumbar spine surgery L1 through 5 presented to the hospital after a fall found to have lumbar compression deformity at L3 level. Patient also has a known history of schizophrenia but currently not on any medications. Tele psych recommended 5150 hold because of patient's agitation and acute psychosis with schizophrenia. Patient's showed the the door the other day. Changes from previous H/P or p: No Changes Eyes: No Pain, No Vision change, No Conjunctivae inflammation, No Eyelid inflammation, No Other, No Redness ENT: No Ear pain, No Ear discharge, No Nose pain, No Nose discharge, No Nose congestion, No Mouth pain, No Mouth swelling, No Throat pain, No Throat swelling, No Other Cardiovascular: No Chest Pain, No Palpitations, No Orthopnea, No Paroxysmal Noc. Dyspnea, No Edema, No Lt Headedness, No Other Respiratory: No Cough, No Dry, No Shortness of breath, No SOB with excertion, No Wheezing, No Hemoptysis, No Pleuritic Pain, No Sputum, No Other Gastrointestinal: No Nausea, No Vomiting, No Abdominal Pain, No Diarrhea, No Constipation, No Melena, No Hematochezia, No Other Genitourinary: No Dysuria, No Frequency, No Incontinence, No Hematuria, No Retention, No Other Musculoskeletal: No other, No neck pain, No shoulder pain, No arm pain; back pain; No hand pain, No leg pain, No foot pain Skin: No Rash, No Lesions, No Jaundice, No Bruising, No Other Objective Vitals Vital Signs Date Time Temp Pulse Resp B/P (MAP) Pulse Ox O2 Delivery O2 Flow Rate FiO2 06/28/24 08:30 Room Air* 0 21 06/28/24 05:00 97.6 74 16 110/54 (37) 96 97.6 Intake/Output Intake and Output 06/28/24 07:00 Intake Total 2750 ml Balance 2750 ml Intake Oral 2750 ml # Voids 5 # Bowel Movements 2 Medications Current Medications Medications Dose Ordered Sig/Rosalie Route Start Time Stop Time Status Last Admin Dose Admin Sodium Chloride 10 ml Q8HR IV 06/25/24 14:00 06/26/24 14:00 10 ML Acetaminophen/ Hydrocodone Bitart 1 tab Q4HP PRN PO 06/25/24 11:30 Ondansetron HCl 4 mg Q4HP PRN IV 06/25/24 11:30 Docusate Sodium 100 mg BIDPRN PRN PO 06/25/24 11:30 Acetaminophen 650 mg Q6HP PRN PO 06/25/24 11:30 Risperidone 2 mg DAILY PO 06/27/24 10:00 06/28/24 10:31 2 MG Laboratory Results Laboratory Tests 06/26/24 06:03 Assessment/Plan Assessment/Plan 29-year-old male with known history of chronic back pain presented to the hospital with intractable back there found to have 1. Acute psychosis with schizophrenia 2. Chronic back pain with L3 compression deformity, no indication for spine surgery as per Dr. Jose Martin Domingo 3. Previous history of lumbar spine surgery L1 through 5 4. Previous diagnosis of schizophrenia, noncompliant with the medications -sitter at bedside, continue risperidone and Cogentin, patient is currently on 5150 -social media community manager has been consulted for inpatient psych facility placement. Plan discussed with: Patient My Orders Orders - SUSHANT FLORES MD Procedure Category Date Status Time Discharge DISCHARGE 06/27/24 Transmitted 17:56 * [facility] CONS 06/27/24 Transmitted Consult 18:01 Date of Service: Jun 28, 2024 Billing Provider: SUSHANT FLORES MD Common Visit Codes: [id number] INP/OBS CARE(MOD) SUSHANT FLORES MD Jun 28, 2024 15:15
[2024-06-28 17:00] VITALS: BP 116/60; PULSE 83; RESP 18; TEMP 97.6; O2SAT 97
[2024-06-28 21:00] VITALS: BP 106/70; PULSE 81; RESP 18; TEMP 97.6; O2SAT 96
[2024-06-28] MEDS: BENZTROPINE MESY 0.5 MG TAB PO SCH (21:41)
[2024-06-29] VITALS (7 sets, daily range): BP systolic 102–139; BP diastolic 52–93; PULSE 79–106; RESP 16–18; TEMP 97.8–98.7; O2SAT 96–99
--- NOTE | 2024-06-29 15:18 | DVHPN2 ---
Subjective 29-year-old male with a known history of chronic back pain with previous lumbar spine surgery L1 through 5 presented to the hospital after a fall found to have lumbar compression deformity at L3 level. Patient also has a known history of schizophrenia but currently not on any medications. Tele psych recommended 5150 hold because of patient's agitation and acute psychosis with schizophrenia. Patient's showed the the door the other day. We are still waiting for inpatient acute care at a psychiatrist hospital. Changes from previous H/P or p: No Changes Eyes: No Pain, No Vision change, No Conjunctivae inflammation, No Eyelid inflammation, No Other, No Redness ENT: No Ear pain, No Ear discharge, No Nose pain, No Nose discharge, No Nose congestion, No Mouth pain, No Mouth swelling, No Throat pain, No Throat swelling, No Other Cardiovascular: No Chest Pain, No Palpitations, No Orthopnea, No Paroxysmal Noc. Dyspnea, No Edema, No Lt Headedness, No Other Respiratory: No Cough, No Dry, No Shortness of breath, No SOB with excertion, No Wheezing, No Hemoptysis, No Pleuritic Pain, No Sputum, No Other Gastrointestinal: No Nausea, No Vomiting, No Abdominal Pain, No Diarrhea, No Constipation, No Melena, No Hematochezia, No Other Genitourinary: No Dysuria, No Frequency, No Incontinence, No Hematuria, No Retention, No Other Musculoskeletal: No other, No neck pain, No shoulder pain, No arm pain; back pain; No hand pain, No leg pain, No foot pain Skin: No Rash, No Lesions, No Jaundice, No Bruising, No Other Objective Vitals Vital Signs Date Time Temp Pulse Resp B/P (MAP) Pulse Ox O2 Delivery O2 Flow Rate FiO2 06/29/24 09:00 98.0 106 18 130/83 (99) 96 98.0 06/28/24 20:00 Room Air* 0 21 Intake/Output Intake and Output 06/29/24 07:00 Intake Total 1400 ml Balance 1400 ml Intake Oral 1400 ml # Voids 4 # Bowel Movements 2 Medications Current Medications Medications Dose Ordered Sig/Rosalie Route Start Time Stop Time Status Last Admin Dose Admin Sodium Chloride 10 ml Q8HR IV 06/25/24 14:00 06/26/24 14:00 10 ML Acetaminophen/ Hydrocodone Bitart 1 tab Q4HP PRN PO 06/25/24 11:30 Ondansetron HCl 4 mg Q4HP PRN IV 06/25/24 11:30 Docusate Sodium 100 mg BIDPRN PRN PO 06/25/24 11:30 Acetaminophen 650 mg Q6HP PRN PO 06/25/24 11:30 Risperidone 2 mg DAILY PO 06/27/24 10:00 06/29/24 09:29 2 MG Benztropine Mesylate 0.5 mg HS PO 06/28/24 22:00 06/28/24 21:41 0.5 MG Laboratory Results Laboratory Tests 06/26/24 06:03 Assessment/Plan Assessment/Plan 29-year-old male with known history of chronic back pain presented to the hospital with intractable back pain found to have 1. Acute psychosis with schizophrenia 2. Chronic back pain with L3 compression deformity, no indication for spine surgery as per Dr. Jose Martin Domingo 3. Previous history of lumbar spine surgery L1 through 5 4. Previous diagnosis of schizophrenia, noncompliant with the medications -sitter at bedside, continue risperidone and Cogentin, patient is currently on 5150 -health and social care teacher has been consulted for inpatient psych facility placement. Plan discussed with: Other Date of Service: Jun 29, 2024 Billing Provider: SUSHANT FLORES MD Common Visit Codes: [id number] INP/OBS CARE(MOD) SUSHANT FLORES MD Jun 29, 2024 15:18
[2024-06-30] VITALS (9 sets, daily range): BP systolic 100–139; BP diastolic 61–101; PULSE 58–92; RESP 16–19; TEMP 97.4–98.3; O2SAT 96–99
--- NOTE | 2024-06-30 07:52 | DVHINCON2 ---
Consultation - Spinal Surgery Date Seen: Jun 30, 2024 Referring Physician Referring Physician Attending Doctor: Edil Mccurdy MD Reason for Consultation Reason for Visit: Back pain History of Present Illness History of Present Illness History of Present Illness Yefri Evangelista is a 29-year-old male with past medical history of chronic back pain, and schizophrenia, who came in for back pain. On assessment the patient states he came in for paralysis and numbness tingling to his back and bilateral legs, worse on the right. I asked him to push on my hands and lift his legs and he did both without any trouble. He is able to reposition in the bed on his own without any difficulty or discomfort. Patient is not consistent on his medical history. States he is not taking any medications at this time, that he may have diabetes, but he can not remember. Past Medical/Surgical History Past Medical/Surgical History Psych: Schizophrenia Musculoskeletal: Chronic low back pain Past Surgical History: Other (back surgery) Family and Social History Family and Social History Smoke: <1 pack per day ALCOHOL: none Drugs: None Lives: with Family Domestic Violence: Neg Allergies and medications Allergies: Coded Allergies: NO KNOWN ALLERGIES (Unverified , 09/25/22) Home Meds Active Scripts Gabapentin (Once-Daily) (Gabapentin) 300 Mg Tab, 300 MG PO Q6HP PRN, #60 TAB Prov:MIK LOWRY MD 06/25/24 Cyclobenzaprine HCl (Cyclobenzaprine Hydrochlo) 10 Mg Tab, 1 TAB PO Q8HR, #15 TAB As needed for muscle spasm Prov:BHAVANI FERRARA Q PORTAL ARCHITECT 01/14/23 Ibuprofen Micronized (Ibuprofen) 800 Mg Tab, 1 TAB PO Q8HR, #30 TAB As needed for pain take it with food Prov:BHAVANI FERRARA Q PORTAL ARCHITECT 01/14/23 Reported Medications Benztropine Mesylate (Benztropine Mesylate) 0.5 Mg Tab, 1 TAB PO 01/25/23 Risperidone (Risperidone) 2 Mg Tab, 1 TAB PO 01/25/23 Review of systems Review of Systems: HEENT:Normal, CVS:Normal, RESPIRATORY:Normal, GI:Normal, :Normal, MSK:Abnormal (back pain), NEURO:Abnormal Examination Vital signs Imaging studies EXAM: XY LUMBAR SPINE 3 VIEW HISTORY: pain s/p fall COMPARISON: XY LUMBAR SPINE 3 VIEW on DOS: 01/14/23, XY LUMBAR SPINE 3 VIEW on DOS: 10/01/22 TECHNIQUE: AP and lateral views of the lumbar spine and spot lateral of the lumbosacral junction were performed. Findings/ IMPRESSION: Posterior fixation hardware of the lumbar spine from L1-L5. [id number] compression deformity involving the superior endplate of L3 which is unchanged f rom prior. Vital Signs Date Time Temp Pulse Resp B/P (MAP) Pulse Ox O2 Delivery O2 Flow Rate FiO2 06/30/24 05:00 98.3 75 18 118/73 (88) 98 98.3 06/29/24 20:00 Room Air* 0 21 Laboratory Labs Test 06/26/24 06:03 Range/Units White Blood Count 7.2 4.4-10.8 10^3/uL Red Blood Count 4.60 4.5-5.90 10^6/uL Hemoglobin 14.5 13.5-17.5 g/dL Hematocrit 42.0 41.0-53.0 % Mean Corpuscular Volume 91.4 80.0-100.0 fL Mean Corpuscular Hemoglobin 31.4 28.0-32.0 pg Mean Corpuscular Hemoglobin Concent 34.4 32.0-36.0 g/dL Red Cell Distribution Width 13.4 11.8-14.3 % Platelet Count 224 140-450 10^3/uL Mean Platelet Volume 8.2 6.9-10.8 fL Neutrophils (%) (Auto) 55.2 37.0-80.0 % Lymphocytes (%) (Auto) 28.9 10.0-50.0 % Monocytes (%) (Auto) 10.1 0.0-12.0 % Eosinophils (%) (Auto) 5.1 0.0-7.0 % Basophils (%) (Auto) 0.7 0.0-2.0 % Neutrophils # (Auto) 4.0 1.6-8.6 10 ^3/uL Lymphocytes # (Auto) 2.1 0.4-5.4 10 ^3/uL Monocytes # (Auto) 0.7 0-1.3 10 ^3/uL Eosinophils # (Auto) 0.4 0-0.8 10 ^3/uL Basophils # (Auto) 0.1 0-0.2 10 ^3/uL Nucleated Red Blood Cells 0.1 % Sodium Level 140 136-145 mmol/L Potassium Level 4.1 3.5-5.1 mmol/L Chloride Level 108 H 98-107 mmol/L Carbon Dioxide Level 26 20-31 mmol/L Anion Gap 6 5-15 Blood Urea Nitrogen 11 9-23 mg/dL Creatinine 0.96 0.700-1.30 mg/dL Glomerular Filtration Rate Calc 108 >90 mL/min BUN/Creatinine Ratio 11.5 10.0-20.0 Serum Glucose 95 74-106 mg/dL Calcium Level 9.4 8.7-10.4 mg/dL Total Bilirubin 0.5 0.2-1.0 mg/dL Aspartate Amino Transferase (AST) 35 13-40 U/L Alanine Aminotransferase (ALT) 69 H 7-40 U/L Alkaline Phosphatase 80 46-116 U/L Total Protein 6.5 5.7-8.2 g/dL Albumin 4.1 3.2-4.8 g/dL Examination: GENERAL:Normal, HEENT:Normal (ne defects seen), NECK:Normal (pt moving with no complaints), LUNGS:Normal (speaking- refused to be examined), CVS:Normal (skin appear PWD), ABDOMEN:Normal (no Vomiting noted), MSK:Normal (patient moving all extremities), NEURO:Abnormal (appears agitated) Problem List/Assessment/Plan Problems: (1) Lumbar compression fracture (2) History of lumbosacral spine surgery Assessment and Plan 1. [id number] compression deformity involving the superior endplate of L3 which is unchanged from prior. This fracture was previously found, there is no operative management for this fracture indicated at this time 2. Continue supportive care and treatment per admitting team's discretion. 3. Chronic back pain with L3 compression deformity, no indication for spine surgery as per Dr. Jose Martin Domingo Call with questions Masood Carlos [facility]- Orthopaedic Spine Surgery nurse practitioner For Dr Peace Domingo Patient was examined, chart reviewed, labs evaluated, and diagnostic studies and findings analyzed. Case was discussed with Dr. Jose Martin Domingo who formulated the plan of care. This medical document was created using an electronic medical record system with [employer] system. Although this document has been carefully reviewed, there might still be some phonetic and typographical errors. These areas are purely typographical due to imperfections of the software programs, and do not reflect any compromise in the patient's medical care. Plan discussed with Plan discussed with: Patient LOWMOSHE Jain NP Jun 30, 2024 07:52
--- NOTE | 2024-06-30 10:00 | DVHPN2 ---
Subjective The patient is seen and examined at bedside. No complaint today. Reviewed: Care Plan, H&P, Labs, Medications, Previous Orders Changes from previous H/P or p: No Changes Eyes: No Pain, No Vision change, No Conjunctivae inflammation, No Eyelid inflammation, No Other, No Redness ENT: No Ear pain, No Ear discharge, No Nose pain, No Nose discharge, No Nose congestion, No Mouth pain, No Mouth swelling, No Throat pain, No Throat swelling, No Other Cardiovascular: No Chest Pain, No Palpitations, No Orthopnea, No Paroxysmal Noc. Dyspnea, No Edema, No Lt Headedness, No Other Respiratory: No Cough, No Dry, No Shortness of breath, No SOB with excertion, No Wheezing, No Hemoptysis, No Pleuritic Pain, No Sputum, No Other Gastrointestinal: No Nausea, No Vomiting, No Abdominal Pain, No Diarrhea, No Constipation, No Melena, No Hematochezia, No Other Genitourinary: No Dysuria, No Frequency, No Incontinence, No Hematuria, No Retention, No Other Musculoskeletal: No other, No neck pain, No shoulder pain, No arm pain; back pain; No hand pain, No leg pain, No foot pain Skin: No Rash, No Lesions, No Jaundice, No Bruising, No Other Objective Vitals Vital Signs Date Time Temp Pulse Resp B/P (MAP) Pulse Ox O2 Delivery O2 Flow Rate FiO2 06/30/24 08:30 97.7 69 18 100/61 (74) 96 97.7 06/29/24 20:00 Room Air* 0 21 Intake/Output Intake and Output 06/30/24 07:00 Intake Total 1938 ml Balance 1938 ml Intake Oral 1938 ml # Voids 4 # Bowel Movements 2 General Appearance: Alert, Cooperative, No acute distress HEENT: Atraumatic, PERRLA, EOMI, Mucous membr. moist/pink Neck: Full Range of Motion Lungs: Clear to auscultation, Normal air movement Cardiovascular: Regular rate, Normal S1, Normal S2, No murmurs, Gallops, Rubs Abdomen: Normal bowel sounds, Soft, No tenderness Extremities: Normal pulses Neuro: Cranial nerves 3-12 NL Psych/Mental Status: Mental status NL Medications Current Medications Medications Dose Ordered Sig/Rosalie Route Start Time Stop Time Status Last Admin Dose Admin Sodium Chloride 10 ml Q8HR IV 06/25/24 14:00 06/26/24 14:00 10 ML Acetaminophen/ Hydrocodone Bitart 1 tab Q4HP PRN PO 06/25/24 11:30 Ondansetron HCl 4 mg Q4HP PRN IV 06/25/24 11:30 Docusate Sodium 100 mg BIDPRN PRN PO 06/25/24 11:30 Acetaminophen 650 mg Q6HP PRN PO 06/25/24 11:30 Risperidone 2 mg DAILY PO 06/27/24 10:00 06/30/24 09:24 2 MG Benztropine Mesylate 0.5 mg HS PO 06/28/24 22:00 06/29/24 21:43 0.5 MG Laboratory Results Laboratory Tests 06/26/24 06:03 Labs and/or images reviewed: Labs reviewed by me Assessment/Plan Assessment/Plan 29-year-old male with known history of chronic back pain presented to the hospital with intractable back pain found to have 1. Acute psychosis with schizophrenia 2. Chronic back pain with L3 compression deformity, no indication for spine surgery as per Dr. Jose Martin Domingo 3. Previous history of lumbar spine surgery L1 through 5 4. Previous diagnosis of schizophrenia, noncompliant with the medications -sitter at bedside, continue risperidone and Cogentin, patient is currently on 5150 -social service director has been consulted for inpatient psych facility placement. Waiting for inpatient psych facility placement. This medical document was created using an electronic medical record system with [employer] direct computerized dictation system. Although this document has been carefully reviewed, there may still be some phonetic and typographical errors. These areas are purely typographical due to imperfections of the software programs, and do not reflect any compromise in the patient's medical care. Plan discussed with: Patient Date of Service: Jun 30, 2024 Billing Provider: ROSALVA BILL MD Common Visit Codes: [id number] INP/OBS CARE(HIGH) ROSALVA BILL MD Jun 30, 2024 10:00
--- NOTE | 2024-06-30 11:33 | TELE.CONS ---
PSYCHIATRY REASSESSMENT Date: 06/30/24 1100 S: The patient was seen and evaluated at [facility], [place] via telepsychiatry platform. 29yr old male admitted for chronic back pain. He was seen by PMHNP Karolina Weller on 06/26 and diagnosed with schizophrenia and recommended for 5150 for DTO/GD and started on Risperdal and Benztropine 0.5mg Today, He reported he is doing well. He denied having auditory or visual hallucinations. He denied having homicidal or suicidal ideation. 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 He lives with his parents and stated he feels comfortable returning home. He noted that he came in for his pain and does not feel like he needs mental health care or medications. MSE: alert and oriented speech-regular rate, rhythm and volume Mood-"pretty good" Affect-euthymic, full range, congruent. Tht process-linear and goal directed Tht Content- Denied having suicidal and homicidal ideation. Denied auditory or visual hallucinations. No delusions or perseverations noted Insight-fair Judgment-fair Impulse control-fair. Diagnosis: UNSPECIFIED PSYCHOTIC DISORDER Assessment: This 29 yr old male appears to suffer from psychosis and has h/o schizophrenia. He does not meet criteria for involuntary hold. He may benefit from continuing on risperdal and following up with outpatient mental health Plan: 1. Safety. The patient is a low risk for self harm. 2. Legal-Discontinue 1:1 sitter and discontinue 5150 hold. 3. Medications- recommend continuing risperdal 2mg daily. 4. Case discussed with team IRINEO Evangelista. 5. Please contact psychiatry if further follow up or reevaluation is desired. Yes DICKSON LITTLE MD Jun 30, 2024 10:51
[2024-07-01 01:00] VITALS: BP 137/107; PULSE 80; RESP 17; TEMP 97.6; O2SAT 96
[2024-07-01 05:00] VITALS: BP 135/96; PULSE 86; RESP 17; TEMP 97.8; O2SAT 97
[2024-07-01 08:00] VITALS: PULSE 64; RESP 17; O2SAT 99
[2024-07-01 09:00] VITALS: BP 125/67; PULSE 81; RESP 20; TEMP 97.2; O2SAT 97
--- NOTE | 2024-07-01 10:44 | DVHPN2 ---
Subjective The patient is seen and examined at bedside. No complaint today. Reviewed: Care Plan, H&P, Labs, Medications, Previous Orders Eyes: No Pain, No Vision change, No Conjunctivae inflammation, No Eyelid inflammation, No Other, No Redness ENT: No Ear pain, No Ear discharge, No Nose pain, No Nose discharge, No Nose congestion, No Mouth pain, No Mouth swelling, No Throat pain, No Throat swelling, No Other Cardiovascular: No Chest Pain, No Palpitations, No Orthopnea, No Paroxysmal Noc. Dyspnea, No Edema, No Lt Headedness, No Other Respiratory: No Cough, No Dry, No Shortness of breath, No SOB with excertion, No Wheezing, No Hemoptysis, No Pleuritic Pain, No Sputum, No Other Gastrointestinal: No Nausea, No Vomiting, No Abdominal Pain, No Diarrhea, No Constipation, No Melena, No Hematochezia, No Other Genitourinary: No Dysuria, No Frequency, No Incontinence, No Hematuria, No Retention, No Other Musculoskeletal: No other, No neck pain, No shoulder pain, No arm pain; back pain; No hand pain, No leg pain, No foot pain Skin: No Rash, No Lesions, No Jaundice, No Bruising, No Other Objective Vitals Vital Signs Date Time Temp Pulse Resp B/P (MAP) Pulse Ox O2 Delivery O2 Flow Rate FiO2 07/01/24 09:00 97.2 81 20 125/67 (86) 97 97.2 06/30/24 20:00 Room Air* 0 21 Intake/Output Intake and Output 07/01/24 07:00 Intake Total 2200 ml Balance 2200 ml Intake Oral 2200 ml # Voids 5 # Bowel Movements 2 General Appearance: Alert, Cooperative, No acute distress HEENT: Atraumatic, PERRLA, EOMI, Mucous membr. moist/pink Neck: Full Range of Motion Lungs: Clear to auscultation, Normal air movement Cardiovascular: Regular rate, Normal S1, Normal S2, No murmurs, Gallops, Rubs Abdomen: Normal bowel sounds, Soft, No tenderness Extremities: Normal pulses Neuro: Cranial nerves 3-12 NL Psych/Mental Status: Mental status NL Medications Current Medications Medications Dose Ordered Sig/Rosalie Route Start Time Stop Time Status Last Admin Dose Admin Sodium Chloride 10 ml Q8HR IV 06/25/24 14:00 07/01/24 06:06 10 ML Acetaminophen/ Hydrocodone Bitart 1 tab Q4HP PRN PO 06/25/24 11:30 Ondansetron HCl 4 mg Q4HP PRN IV 06/25/24 11:30 Docusate Sodium 100 mg BIDPRN PRN PO 06/25/24 11:30 Acetaminophen 650 mg Q6HP PRN PO 06/25/24 11:30 Risperidone 2 mg DAILY PO 06/27/24 10:00 06/30/24 09:24 2 MG Benztropine Mesylate 0.5 mg HS PO 06/28/24 22:00 06/30/24 21:30 0.5 MG Laboratory Results Laboratory Tests 06/26/24 06:03 Assessment/Plan Assessment/Plan 29-year-old male with known history of chronic back pain presented to the hospital with intractable back pain found to have 1. Acute psychosis with schizophrenia 2. Chronic back pain with L3 compression deformity, no indication for spine surgery as per Dr. Jose Martin Domingo 3. Previous history of lumbar spine surgery L1 through 5 4. Previous diagnosis of schizophrenia, noncompliant with the medications -sitter at bedside, continue risperidone and Cogentin, patient is currently on 5150 -social contact worker has been consulted for inpatient psych facility placement. Waiting for inpatient psych facility placement. This medical document was created using an electronic medical record system with M*M flurency direct computerized dictation system. Although this document has been carefully reviewed, there may still be some phonetic and typographical errors. These areas are purely typographical due to imperfections of the software programs, and do not reflect any compromise in the patient's medical care. ROSALVA BILL MD Jul 01, 2024 10:44
--- NOTE | 2024-07-01 12:21 | DVHDS2 ---
Discharge Summary Date of Admission Jun 25, 2024 at 11:23 Date of Discharge: Jul 01, 2024 Admitting Diagnosis 1. Acute psychosis with schizophrenia 2. Chronic back pain with L3 compression deformity, no indication for spine surgery as per Dr. Jose Martin Domingo 3. Previous history of lumbar spine surgery L1 through 5 4. Previous diagnosis of schizophrenia, noncompliant with the medications Labs/Diagnostic Data: Laboratory Results Test 06/26/24 06:03 White Blood Count 7.2 10^3/uL (4.4-10.8) Red Blood Count 4.60 10^6/uL (4.5-5.90) Hemoglobin 14.5 g/dL (13.5-17.5) Hematocrit 42.0 % (41.0-53.0) Mean Corpuscular Volume 91.4 fL (80.0-100.0) Mean Corpuscular Hemoglobin 31.4 pg (28.0-32.0) Mean Corpuscular Hemoglobin Concent 34.4 g/dL (32.0-36.0) Red Cell Distribution Width 13.4 % (11.8-14.3) Platelet Count 224 10^3/uL (140-450) Mean Platelet Volume 8.2 fL (6.9-10.8) Neutrophils (%) (Auto) 55.2 % (37.0-80.0) Lymphocytes (%) (Auto) 28.9 % (10.0-50.0) Monocytes (%) (Auto) 10.1 % (0.0-12.0) Eosinophils (%) (Auto) 5.1 % (0.0-7.0) Basophils (%) (Auto) 0.7 % (0.0-2.0) Neutrophils # (Auto) 4.0 10 ^3/uL (1.6-8.6) Lymphocytes # (Auto) 2.1 10 ^3/uL (0.4-5.4) Monocytes # (Auto) 0.7 10 ^3/uL (0-1.3) Eosinophils # (Auto) 0.4 10 ^3/uL (0-0.8) Basophils # (Auto) 0.1 10 ^3/uL (0-0.2) Nucleated Red Blood Cells 0.1 % Sodium Level 140 mmol/L (136-145) Potassium Level 4.1 mmol/L (3.5-5.1) Chloride Level 108 mmol/L (98-107) Carbon Dioxide Level 26 mmol/L (20-31) Anion Gap 6 (5-15) Blood Urea Nitrogen 11 mg/dL (9-23) Creatinine 0.96 mg/dL (0.700-1.30) Glomerular Filtration Rate Calc 108 mL/min (>90) BUN/Creatinine Ratio 11.5 (10.0-20.0) Serum Glucose 95 mg/dL (74-106) Calcium Level 9.4 mg/dL (8.7-10.4) Total Bilirubin 0.5 mg/dL (0.2-1.0) Aspartate Amino Transferase (AST) 35 U/L (13-40) Alanine Aminotransferase (ALT) 69 U/L (7-40) Alkaline Phosphatase 80 U/L (46-116) Total Protein 6.5 g/dL (5.7-8.2) Albumin 4.1 g/dL (3.2-4.8) Other Laboratory Tests 06/26/24 06:03 Brief Hx & Hospital Course: This is a 29 years old male with past medical history chronic back pain, schizophrenia came to emergency department for paralysis and numbness tingling of his back and bilateral legs. The patient said the pain was at night. The patient apparently claimed that he became paralysis and being unable to walk. Per report pt is ambulating fine prior to this episode. Patient also reports that he kicked door to bathroom unprovoked and it fell on another patient. On evaluation via telepsychiatry. Patient denies having schizophrenia. He was visibly preoccupied, laughing to self inappropriately, responding to unseen stimuli. but he denies any auditory/visual hallucinations. He does report that unknown people are following and trying to harm him. He denies suicidal/homicidal ideation. He reports that he shoved the door because it was not sturdy and checking if it would fall. He is also smiling while reporting this. The patient was seen by spine orthopedic surgeon, , recommend pain control and follow up as outpatient. Per psychiatrist with a pull impulse control and psychosis they recommend inpatient psych facility. The patient agreed to go to psych facility and director of casework is working on placement. However he doing much better. Less complain of headache, pain. Psychiatrist was consulted via tele again. This time they cleared the patient to be discharged home. No [id number]. So I am going to discharge him home. Advised him to follow up with primary care physician 1-2 weeks. Follow up with psychiatrist per schedule. Activity as tolerated. Diet low-salt low-cholesterol diet Physical exam: HEENT: Normocephalic atraumatic pupils equal react to light and accommodation. Extraocular muscles intact, conjunctiva pink, oropharynx moist, no thrush, no exudate. Lymphatic: No lymphadenopathy Cardiovascular exam: S1, S2 was heard. No murmurs, rubs, gallops Lung: Clear on auscultation bilaterally, no wheeze, rale, rhonchi. GI: Abdominal soft, nondistended, nontenderness, positive bowel sounds. Extremity: No crepitus, cyanosis, edema. Pedal pulses present bilateral. Full range of motion. Skin: Normal turgor, no rash. Psych: Alert, oriented x3. Neurology: No focal deficits, cranial nerve II to XII grossly intact. Condition at Discharge: Stable Final Diagnosis/Problems List 1. Acute psychosis with schizophrenia 2. Chronic back pain with L3 compression deformity, no indication for spine surgery as per Dr. Jose Martin Domingo 3. Previous history of lumbar spine surgery L1 through 5 4. Previous diagnosis of schizophrenia, noncompliant with the medications Discharge Disposition: Acute Care Facility Discharge Instruct/Medications Diet: Regular Activity: See Comment Activity comment: Patient is going to inpatient psych facility Follow Up/Referral: Follow up with the inpatient psychiatry Medications: As signed Discharge Statement: "Patient was advised to return to the ER or call 911 if any headaches, dizziness, shortness of breath, chest pain, abdominal pain, bleeding, fevers, or worsening of medical condition. Patient was counseled about treatment plan, medications, possible side effects, patientverbalized understanding. All questions were answered to the best of my ability. This discharge took greater then 30 minutes in planning, reviewing documentation, counseling the patient, and discussing with other team members." ASSESSMENT ASSESSMENT Assessment Acute psychosis Schizophrenia Date of Service: Jul 01, 2024 Billing Provider: ROSALVA BILL MD Common Visit Codes: 53525-JGY/OBS DISCH DAY >30min ROSALVA BILL MD Jul 01, 2024 12:21
[2024-07-01] MEDS ORDERED: RISP2TAB62 PO (12:22)
[2024-07-01] MEDS ORDERED: HYDR-4902 PO (12:22)
[2024-07-01 20:00] VITALS: PULSE 65; RESP 16; O2SAT 99
[2024-07-01 21:00] VITALS: BP 128/80; PULSE 100; RESP 19; TEMP 97.6; O2SAT 97
== END 2024-07-01 21:29 | disposition home or self-care (01) | DRG 347 ==
LOC: EDBD 19:57 → ER 19:57 → OVERFLOW 06-25 11:23 → WEST WING 06-25 13:16 → CENTRAL 06-30 22:25
PROVIDERS: ADMIT Internal Medicine; ATTEND Internal Medicine
DX: S32.039A Unspecified fracture of third lumbar vertebra, initial encounter for closed fracture (principal); G83.9 Paralytic syndrome, unspecified; F29 Unspecified psychosis not due to a substance or known physiological condition; S33.5XXA Sprain of ligaments of lumbar spine, initial encounter; F12.90 Cannabis use, unspecified, uncomplicated; F17.210 Nicotine dependence, cigarettes, uncomplicated; F20.9 Schizophrenia, unspecified; I10 Essential (primary) hypertension; G89.29 Other chronic pain; F41.9 Anxiety disorder, unspecified; W18.39XA Other fall on same level, initial encounter; F32.A Depression, unspecified; Z59.00 Homelessness unspecified; Z88.1 Allergy status to other antibiotic agents; Z88.8 Allergy status to other drugs, medicaments and biological substances; Z79.899 Other long term (current) drug therapy; Z79.1 Long term (current) use of non-steroidal anti-inflammatories (NSAID); Z91.51 Personal history of suicidal behavior; Z91.199 Patient's noncompliance with other medical treatment and regimen due to unspecified reason; Z91.148 Patient's other noncompliance with medication regimen for other reason; Y93.89 Activity, other specified; Y92.89 Other specified places as the place of occurrence of the external cause; Y99.8 Other external cause status
CPT/HCPCS: 36415; 72100; 72170; 80048; 80053; 85025; 97110; 97116; 97163; 97530; G0378

== ENCOUNTER 2024-08-03 13:37 | Emergency (ER) | payer MEDICAID ==
[~2024-08-03 13:37] MED LIST changes: +GABA300T4 PO; +HYDR-4902 PO
== END 2024-08-03 14:09 | disposition left against medical advice (07) ==
LOC: ER 13:37
DX: Z00.00 Encounter for general adult medical examination without abnormal findings (principal); Z53.21 Procedure and treatment not carried out due to patient leaving prior to being seen by health care provider

== ENCOUNTER 2024-08-03 18:02 | Emergency (ER) | payer MEDICAID ==
[~2024-08-03] VITALS: Ht 175.3 cm; Wt 94.7 kg
--- NOTE | 2024-08-03 18:22 | ED.PDOC ---
Back pain HPI HPI Comments PT PRESENTED TO THE ER WITH C/C OF WELLNESS CHECK. PER PT HE WAS SENT BY HIS ATTENDING AMBULATORY CARE TO BE CHECKED OUT. PT IS A&OX4 AND HAS NO COMPLAINTS AT THIS TIME. Time Seen by MD: 18:13 Primary Care Provider: NONE Reviewed Notes: Nurses Notes, Medications, Allergies Allergies: Coded Allergies: NO KNOWN ALLERGIES (Unverified , 09/25/22) Home Meds Active Scripts Hydrocodone-Acetaminophen (Hydrocodone Bitartrate/AC 5-325 mg) 1 Tab Tab, 1 TAB PO Q4HP PRN, #20 TAB Prov:ROSALVA BILL MD 07/01/24 Risperidone (Risperidone) 2 Mg Tab, 1 TAB PO DAILY, #30 TAB Prov:ROSALVA BILL MD 07/01/24 Gabapentin (Once-Daily) (Gabapentin) 300 Mg Tab, 300 MG PO Q6HP PRN, #60 TAB Prov:MIK LOWRY MD 06/25/24 Cyclobenzaprine HCl (Cyclobenzaprine Hydrochlo) 10 Mg Tab, 1 TAB PO Q8HR, #15 TAB As needed for muscle spasm Prov:BHAVANI FERRARA TEMPLATE CUTTER 01/14/23 Ibuprofen Micronized (Ibuprofen) 800 Mg Tab, 1 TAB PO Q8HR, #30 TAB As needed for pain take it with food Prov:BHAVANI FERRARA TEMPLATE CUTTER 01/14/23 Reported Medications Benztropine Mesylate (Benztropine Mesylate) 0.5 Mg Tab, 1 TAB PO 01/25/23 Information Source: Patient Past Medical History PAST MEDICAL HISTORY: Anxiety, Depression, HTN, Schizophrenia Surgical History: Denies all surgeries Family History Family History: Reviewed,noncontributory to illness Social History Smoker: Cigarettes, Less Than 1 Pack/Day Alcohol: Denies ETOH Use Drugs: Marijuana Lives In: Home Constitutional: denies: chills, diaphoresis, fatigue, fever, malaise, sweats, weakness, others EENTM: denies: blurred vision, double vision, ear bleeding, ear discharge, ear drainage, ear pain, ear ringing, eye pain, eye redness, hearing loss, mouth pain, mouth swelling, nasal discharge, nose bleeding, nose congestion, nose pain, photophobia, tearing, throat pain, throat swelling, voice changes, others Respiratory: denies: cough, hemoptysis, orthopnea, SOB at rest, shortness of breath, SOB with excertion, stridor, wheezing, others Cardiovascular: denies: chest pain, dizzy spells, diaphoresis, Dyspnea on exertion, edema, irregular heart beat, left arm pain, lightheadedness, palpitations, PND, syncope, others Gastrointestinal: denies: abdomen distended, abdominal pain, blood streaked bowels, constipated, diarrhea, dysphagia, difficulty swallowing, hematemesis, melena, nausea, poor appetite, poor fluid intake, rectal bleeding, rectal pain, vomiting, others Genitourinary: denies: burning, dysuria, flank pain, frequency, hematuria, incontinence, penile discharge, penile sore, pain, testicle pain, testicle swelling, urgency, others Neurological: denies: dizziness, fainting, headache, left sided numbness, left sided weakness, numbness, paresthesia, pre-existing deficit, right sided numbness, right sided weakness, seizure, speech problems, tingling, tremors, weakness, others Musculoskeletal: denies: back pain, gout, joint pain, joint swelling, muscle pain, muscle stiffness, neck pain, others Integumetry: denies: bruises, change in color, change in hair/nails, dryness, laceration, lesions, lumps, rash, wounds, others Allergic/Immunocompromised: denies: Difficulty Healing, Frequent Infections, Hives, Itching, others Hematologic/Lymphatic: denies: anemia, blood clots, easy bleeding, easy bruising, swollen glands, others Endocrine: denies: excessive hunger, excessive sweating, excessive thirst, excessive urination, flushing, intolerance to cold, intolerance to heat, unexplained weight gain, unexplained weight loss, others Psychiatric: denies: anxiety, bipolar disorder, depression, hopeless, panic disorder, schizophrenia, sleepless, suicidal, others Physical Exam General Appearance: No Apparent Distress, Normal HEENT: Normal ENT Inspection, Pharynx Normal, TMs Normal Neck: Full Range of Motion, Non-Tender, Normal, Normal Inspection Respiratory: Chest Non-Tender, Lungs Clear, No Accessory Muscle Use, No Respiratory Distress, Normal Breath Sounds Cardiovascular: No Edema, No JVD, No Murmur, No Gallop, Normal Peripheral Pulses, Regular Rate/Rhythm Breast Exam: Deferred Gastrointestinal: No Organomegaly, Non Tender, No Pulsatile Mass, Normal Bowel Sounds, Soft Genitalia: Deferred Pelvic: Deferred Rectal: Deferred Extremities: No calf tenderness, Normal capillary refill, Normal inspection, Normal range of motion, Non-tender, No pedal edema Musculoskeletal : Apperance: Normal Neurologic: Alert, group practice pediatrician II-XII nml as Tested, No Motor Deficits, Normal Affect, Normal Mood, No Sensory Deficits Cerebellar Function: Normal Reflexes: Normal Skin: Dry, Normal Color, Warm Lymphatic: No Adenopathy Was a procedure done? Was a procedure done?: No Back Pain Differential Dx Differential Diagnosis: Musculoskeletal Pain X-Ray, Labs, Meds, VS Vital Signs Date Time Temp Pulse Resp B/P (MAP) Pulse Ox O2 Delivery O2 Flow Rate FiO2 08/03/24 18:43 98.0 101 18 131/89 (103) 97 98.0 08/03/24 18:43 101 18 97 Room Air 08/03/24 18:28 98.0 101 18 131/89 (103) 97 98.0 X-Ray, Labs, Meds, VS Comment PATIENT DENIES ANY PAIN, DENIES ANY CONCERNS, IS A ALERT AND ORIENTED X4 SPEECH CLEAR. [id number] TYLENOL MOTRIN NEEDED FOR THE PAIN PER LABEL DOSE INSTRUCTIONS. ADVISED TO FOLLOW-UP WITH HIS PCP SYMPTOMS GET WORSE CONSIDER FURTHER IMAGING ADVISED ON ER RETURN PRECAUTIONS PATIENT INDICATES UNDERSTANDING AGREES WITH DISCHARGE PLAN OF CARE. Time of 1ST Reevaluation: 18:23 Reevaluation 1ST: Improved Patient Education/Counseling: Diagnosis, Treatment, Prognosis, Need For Follow Up Family Education/Counseling: No Family Present Departure 1 Departure Time of Disposition: 18:24 Impression: Primary Impression: Low back strain Qualified Codes: S39.012A - Strain of muscle, fascia and tendon of lower back, initial encounter Additional Impression: Right ankle strain Qualified Codes: S96.911A - Strain of unspecified muscle and tendon at ankle and foot level, right foot, initial encounter Disposition: HOME / SELF CARE / HOMELESS Condition: Stable Discharged With: Self Critical Care Note Critical Care Time?: No Stability Stability form required: GUMARO Jay August 03, 2024 18:21
[2024-08-03 18:43] VITALS: BP 131/89; PULSE 101; RESP 18; TEMP 98; O2SAT 97
== END 2024-08-03 19:17 | disposition home or self-care (01) ==
LOC: ER 18:02
DX: S39.012A Strain of muscle, fascia and tendon of lower back, initial encounter (principal); S96.911A Strain of unspecified muscle and tendon at ankle and foot level, right foot, initial encounter; F17.210 Nicotine dependence, cigarettes, uncomplicated; F12.90 Cannabis use, unspecified, uncomplicated; F20.9 Schizophrenia, unspecified; I10 Essential (primary) hypertension; F41.9 Anxiety disorder, unspecified; F32.A Depression, unspecified; Z79.899 Other long term (current) drug therapy; X58.XXXA Exposure to other specified factors, initial encounter; Y93.89 Activity, other specified; Y92.89 Other specified places as the place of occurrence of the external cause; Y99.8 Other external cause status

== ENCOUNTER 2024-08-12 21:17 | Emergency (ER) | payer MEDICAID ==
[~2024-08-12] VITALS: Ht 175.3 cm; Wt 92.7 kg
--- NOTE | 2024-08-12 23:10 | ED.PDOC ---
History of Present Illness HPI Comments This is a 29-year-old, obese male that presents for mental health complaint. Patient is a poor historian. He endorses on his mother dropping him off to seek psychiatric attention for recent behaviors that include pushing his pet dogs and breaking objects around his home for no reason. Endorses vague reports of suicidal and homicidal ideations. History of schizophrenia. Denies any auditory or visual hallucinations, suicidal or homicidal attempts or plans, or further associated symptoms. Chief Complaint: Mental Health Time Seen by MD: 23:00 Primary Care Provider: NONE Reviewed Notes: Nurses Notes, Medications, Allergies Allergies: Coded Allergies: NO KNOWN ALLERGIES (Unverified , 09/25/22) Home Meds Active Scripts Hydrocodone-Acetaminophen (Hydrocodone Bitartrate/AC 5-325 mg) 1 Tab Tab, 1 TAB PO Q4HP PRN, #20 TAB Prov:ROSALVA BILL MD 07/01/24 Risperidone (Risperidone) 2 Mg Tab, 1 TAB PO DAILY, #30 TAB Prov:ROSALVA BILL MD 07/01/24 Gabapentin (Once-Daily) (Gabapentin) 300 Mg Tab, 300 MG PO Q6HP PRN, #60 TAB Prov:MIK LOWRY MD 06/25/24 Cyclobenzaprine HCl (Cyclobenzaprine Hydrochlo) 10 Mg Tab, 1 TAB PO Q8HR, #15 TAB As needed for muscle spasm Prov:BHAVANI FERRARA LAWYER PROBATE 01/14/23 Ibuprofen Micronized (Ibuprofen) 800 Mg Tab, 1 TAB PO Q8HR, #30 TAB As needed for pain take it with food Prov:BHAVANI FERRARA LAWYER PROBATE 01/14/23 Reported Medications Benztropine Mesylate (Benztropine Mesylate) 0.5 Mg Tab, 1 TAB PO 01/25/23 Information Source: Patient Mode of Arrival: Ambulatory Severity: Moderate Timing: Hours Duration: Since onset Prehospital treatment: None Past Medical History PAST MEDICAL HISTORY: Anxiety, Depression, HTN, Schizophrenia Surgical History: Denies all surgeries Family History Family History: Reviewed,noncontributory to illness Social History Smoker: Cigarettes, Less Than 1 Pack/Day Alcohol: Denies ETOH Use Drugs: Marijuana Lives In: Home All Other Systems: Reviewed and Negative (Comprehensive systems review obtained and negative except for what is stated in the HPI.) Physical Exam General Appearance: No Apparent Distress, Obese HEENT: Normal ENT Inspection, Pharynx Normal, TMs Normal Neck: Full Range of Motion, Non-Tender, Normal, Normal Inspection Respiratory: Chest Non-Tender, Lungs Clear, No Accessory Muscle Use, No Respiratory Distress, Normal Breath Sounds Cardiovascular: No Edema, No JVD, No Murmur, No Gallop, Normal Peripheral Pulses, Regular Rate/Rhythm Breast Exam: Deferred Gastrointestinal: No Organomegaly, Non Tender, No Pulsatile Mass, Normal Bowel Sounds, Soft Genitalia: Deferred Pelvic: Deferred Rectal: Deferred Extremities: No calf tenderness, Normal capillary refill, Normal inspection, Normal range of motion, Non-tender, No pedal edema Musculoskeletal : Apperance: Normal Neurologic: Alert, tricot knitter II-XII nml as Tested, No Motor Deficits, No Sensory Deficits, Other (poor insight, reports on passive, vague thought of hurting himself and others without plans. ) Cerebellar Function: Normal Reflexes: Normal Skin: Dry, Normal Color, Warm Lymphatic: No Adenopathy Was a procedure done? Was a procedure done?: No Differential Dx Considerations may include: suicidal, depression, hopelessness, schizoaffective disorder, bipolar disorder, medication noncompliance. X-Ray, Labs, Meds, VS Vital Signs Date Time Temp Pulse Resp B/P (MAP) Pulse Ox O2 Delivery O2 Flow Rate FiO2 08/12/24 22:46 98.8 108 22 140/71 (94) 98 98.8 Lab Test 08/12/24 23:12 Range/Units White Blood Count 8.3 4.4-10.8 10^3/uL Red Blood Count 5.30 4.5-5.90 10^6/uL Hemoglobin 15.9 13.5-17.5 g/dL Hematocrit 47.0 41.0-53.0 % Mean Corpuscular Volume 88.6 80.0-100.0 fL Mean Corpuscular Hemoglobin 30.0 28.0-32.0 pg Mean Corpuscular Hemoglobin Concent 33.8 32.0-36.0 g/dL Red Cell Distribution Width 13.1 11.8-14.3 % Platelet Count 247 140-450 10^3/uL Mean Platelet Volume 8.5 6.9-10.8 fL Neutrophils (%) (Auto) 62.1 37.0-80.0 % Lymphocytes (%) (Auto) 25.2 10.0-50.0 % Monocytes (%) (Auto) 9.7 0.0-12.0 % Eosinophils (%) (Auto) 2.3 0.0-7.0 % Basophils (%) (Auto) 0.7 0.0-2.0 % Neutrophils # (Auto) 5.2 1.6-8.6 10 ^3/uL Lymphocytes # (Auto) 2.1 0.4-5.4 10 ^3/uL Monocytes # (Auto) 0.8 0-1.3 10 ^3/uL Eosinophils # (Auto) 0.2 0-0.8 10 ^3/uL Basophils # (Auto) 0.1 0-0.2 10 ^3/uL Nucleated Red Blood Cells 0.0 % Sodium Level 139 136-145 mmol/L Potassium Level 3.8 3.5-5.1 mmol/L Chloride Level 107 98-107 mmol/L Carbon Dioxide Level 25 20-31 mmol/L Anion Gap 7 5-15 Blood Urea Nitrogen 11 9-23 mg/dL Creatinine 0.90 0.700-1.30 mg/dL Glomerular Filtration Rate Calc 117 >90 mL/min BUN/Creatinine Ratio 12.2 10.0-20.0 Serum Glucose 115 H 74-106 mg/dL Calcium Level 10.2 8.7-10.4 mg/dL Total Bilirubin 0.5 0.2-1.0 mg/dL Aspartate Amino Transferase (AST) 36 13-40 U/L Alanine Aminotransferase (ALT) 81 H 7-40 U/L Alkaline Phosphatase 97 46-116 U/L Total Protein 7.6 5.7-8.2 g/dL Albumin 4.8 3.2-4.8 g/dL Salicylates Level < 3.0 -30 mg/dL Acetaminophen Level < 2.0 L 10.0-20.0 UG/ML Plasma/Serum Blood Alcohol < 3.0 <10 mg/dL Time of 1ST Reevaluation: 23:30 Reevaluation 1ST: Unchanged Patient Education/Counseling: Diagnosis, Treatment Family Education/Counseling: No Family Present Departure 1 Departure Time of Disposition: 02:00 Impression: Primary Impression: Schizophrenia Disposition: 01 HOME / SELF CARE / HOMELESS Condition: Stable Discharged With: Self Critical Care Note Critical Care Time?: No Stability Stability form required: No Heart Score Heart Score: Heart Score Response (Comments) Value History N/A 0 EKG N/A 0 Age N/A 0 Risk Factors N/A 0 Troponin N/A 0 Total 0 I personally scribed for MIK LOWRY MD ([email or web address]) on 08/12/24 at 23:10. Electronically submitted by Markos Hernandez [email or web address]). MIK LOWRY MD August 12, 2024 23:10
[2024-08-12 23:39] LABS: Basophils # (auto) 0.1 10 ^3/uL (0-0.2); Basophils % (auto) 0.7 % (0.0-2.0); Eosinophils # (auto) 0.2 10 ^3/uL (0-0.8); Eosinophils % (auto) 2.3 % (0.0-7.0); Hemoglobin 15.9 g/dL (13.5-17.5); Lymphocytes # (auto) 2.1 10 ^3/uL (0.4-5.4); Lymphocytes % (auto) 25.2 % (10.0-50.0); Mean Corpuscular Hgb Conc. 33.8 g/dL (32.0-36.0); Mean Corpuscular Volume 88.6 fL (80.0-100.0); Monocytes # (auto) 0.8 10 ^3/uL (0-1.3); Monocytes % (auto) 9.7 % (0.0-12.0); Neutrophils # (auto) 5.2 10 ^3/uL (1.6-8.6); Neutrophils % (auto) 62.1 % (37.0-80.0); Platelet Count (auto) 247 10^3/uL (140-450); Red Cell Distribution Width 13.1 % (11.8-14.3); White Blood Cell 8.3 10^3/uL (4.4-10.8)
[2024-08-12 23:56] LABS: Alkaline Phosphatase 97 U/L (46-116); Anion Gap 7 (5-15); Aspartate Aminotransferase 36 U/L (13-40); BUN/Creatinine Ratio 12.2 (10.0-20.0); Bilirubin, Total 0.5 mg/dL (0.2-1.0); Blood Urea Nitrogen 11 mg/dL (9-23); Calcium 10.2 mg/dL (8.7-10.4); Carbon Dioxide 25 mmol/L (20-31); Chloride 107 mmol/L (98-107); Potassium 3.8 mmol/L (3.5-5.1); Sodium 139 mmol/L (136-145); Total Protein 7.6 g/dL (5.7-8.2)
[2024-08-13 00:01] LABS: Acetaminophen < 2.0 UG/ML (10.0-20.0); Salicylate < 3.0 mg/dL (-30)
[2024-08-13 00:02] LABS: Alanine Aminotransferase 81 U/L (7-40); Albumin 4.8 g/dL (3.2-4.8); Blood Alcohol < 3.0 mg/dL (<10); Glucose 115 mg/dL (74-106)
--- NOTE | 2024-08-13 04:55 | DVHINCON2 ---
Date of Service if different f: August 13, 2024 Time of Service: 04:25 Consult Consult Note PSYCHIATRY ED NEW CONSULT HPI: 29 yo M pt with PPH of schizophrenia presents to ED BIB parent for safety, psychiatric stabilization, and possible med initiation/optimization in setting of med noncompliance, passive SI, and psychosis. Psychiatry consulted for safety evaluation and recommendations in context of current presentation Per pt, reports over past several weeks/months experiencing moderate thought disorder, confusion, some thought blocking, vague paranoia, moderate agitation/irritability (pushing pet dogs and breaking objects around home), TI,poor sleep, anxiety, possible decline in self care, NC/NT AH. Pt poor historian with limited J/I and appears to have baseline thought disorder in setting of SPMI dx. Denies HI. No overt manic, MDD, cognitive, dissociative phenomena, panic, OCD, PTSD, or somatic symptoms noted. Denies acute psychos ocial stressors Pt currently does not have active outpt MH services established at this time. Currently not on any psychotropic agents for several months, most recently rx'd Risperdal and Benztropine but appears to have hx of med noncompliance Recent struggles with ETOH dependency including daily ETOH use for past several weeks, denies THC or IDU Single, no children, unemployed, lives with parents/extended family, HS grad, some support system noted (immediate family) Unknown trauma hx. Denies FH of psych hospitalizations, suicide attempts, or completed suicides No acute medical/chronic pain issues, hx of seizures/TBI, or recent head injuries, NKDA Denies hx of SI/SIB/SA/PSG although has had several prior psych hospitalizations for psychosis. Denies history of violence, unprovoked aggression, or assaultive behaviors. Denies any legal problems Currently denies SI/HI. Does not have access to firearms MSE: General Appearance/Behavior: Alert and awake; appears stated age, overweight, fair grooming and hygiene; calm and cooperative, fair eye contact, no PMA/PMR Speech: coherent, latency, not overly spontaneous, monotone Thought Process: linear, but limited and impoverished/POT Thought Content: Abnormal Thoughts and Perceptions: denies dissociative symptoms Homicidality / Violent Thoughts: adamantly denies HI Suicidality: adamantly denies SI Hallucinations: denies AVTH presently Delusions: possible paranoia Obsessions /compulsions: None Judgment and Insight: marginal/limited Mood & Affect: "okay" with mood-congruent, somewhat restricted/confused Orientation: oriented to person, place, time Attention/Concentration: appears intact Cognition: grossly intact Assessment: 29 yo M pt with PPH of schizophrenia presents to ED BIB parent for safety, psychiatric stabilization, and possible med initiation/optimization in setting of med noncompliance, passive SI, and psychosis Pt p/w moderate thought disorder, confusion, some thought blocking, vague paranoia, moderate agitation/irritability (pushing pet dogs and breaking objects around home), TI,poor sleep, anxiety, possible decline in self care, NC/NT AH. Pt poor historian with limited J/I and appears to have baseline thought disorder in setting of SPMI dx. Also admits to recent increase in ETOH use.abuse Not compliant on any psychotropics which maybe contributing to current symptoms. No outpt MH services at present Pt is appropriate for inpatient psychiatric admission for safety, psychiatric stabilization, and possible medication initiation/optimization. Pt willing to transfer to inpt psych facility voluntarily. Does not meet 5150 hold criteria at this time Primary Diagnosis: Psychotic disorder unspecified. ETOH use d/o, unspecified. Schizophrenia. hx Recommend VOL transfer to inpt psych facility for higher level of care per pts request 1:1 sitter is recommended Maintain suicide/elopement precautions Obtain collateral info from external sources if/when available Recommend continuation of current outpt med regimen - risperdal 2 mg bid and Benztropine 1 mg bid Risks/benefits/alternative treatments discussed, informed consent provided by pt If patient later refuses voluntary hospitalization/ requests to be discharged from ED prior to transfer or if no voluntary beds are available, please reconsult telepsych services to evaluate for 5150 hold. Pt verbalized understanding and is receptive to above tx plan This case was discussed with ED nurse/provider and all parties in agreement with above tx plan Kareem Hanks MD Plan discussed with: Patient KAREEM HANKS MD August 13, 2024 04:55
[2024-08-13 07:58] VITALS: PULSE 98; RESP 16; O2SAT 98
[2024-08-13] MEDS: BENZTROPINE MESY 0.5 MG TAB PO ONE (09:20)
[2024-08-13] MEDS: risperiDONE 1 MG TAB PO ONE (09:21)
--- NOTE | 2024-08-13 14:29 | DVHINCON2 ---
Date of Service if different f: August 13, 2024 Consultation ([place]) Labs Laboratory Tests Test 08/12/24 23:12 White Blood Count 8.3 10^3/uL (4.4-10.8) Red Blood Count 5.30 10^6/uL (4.5-5.90) Hemoglobin 15.9 g/dL (13.5-17.5) Hematocrit 47.0 % (41.0-53.0) Mean Corpuscular Volume 88.6 fL (80.0-100.0) Mean Corpuscular Hemoglobin 30.0 pg (28.0-32.0) Mean Corpuscular Hemoglobin Concent 33.8 g/dL (32.0-36.0) Red Cell Distribution Width 13.1 % (11.8-14.3) Platelet Count 247 10^3/uL (140-450) Mean Platelet Volume 8.5 fL (6.9-10.8) Neutrophils (%) (Auto) 62.1 % (37.0-80.0) Lymphocytes (%) (Auto) 25.2 % (10.0-50.0) Monocytes (%) (Auto) 9.7 % (0.0-12.0) Eosinophils (%) (Auto) 2.3 % (0.0-7.0) Basophils (%) (Auto) 0.7 % (0.0-2.0) Neutrophils # (Auto) 5.2 10 ^3/uL (1.6-8.6) Lymphocytes # (Auto) 2.1 10 ^3/uL (0.4-5.4) Monocytes # (Auto) 0.8 10 ^3/uL (0-1.3) Eosinophils # (Auto) 0.2 10 ^3/uL (0-0.8) Basophils # (Auto) 0.1 10 ^3/uL (0-0.2) Nucleated Red Blood Cells 0.0 % Sodium Level 139 mmol/L (136-145) Potassium Level 3.8 mmol/L (3.5-5.1) Chloride Level 107 mmol/L (98-107) Carbon Dioxide Level 25 mmol/L (20-31) Anion Gap 7 (5-15) Blood Urea Nitrogen 11 mg/dL (9-23) Creatinine 0.90 mg/dL (0.700-1.30) Glomerular Filtration Rate Calc 117 mL/min (>90) BUN/Creatinine Ratio 12.2 (10.0-20.0) Serum Glucose 115 mg/dL (74-106) Calcium Level 10.2 mg/dL (8.7-10.4) Total Bilirubin 0.5 mg/dL (0.2-1.0) Aspartate Amino Transf (AST/SGOT) 36 U/L (13-40) Alanine Aminotransferase (ALT/SGPT) 81 U/L (7-40) Alkaline Phosphatase 97 U/L (46-116) Total Protein 7.6 g/dL (5.7-8.2) Albumin 4.8 g/dL (3.2-4.8) Salicylates Level < 3.0 mg/dL (-30) Acetaminophen Level < 2.0 UG/ML (10.0-20.0) Plasma/Serum Blood Alcohol < 3.0 mg/dL (<10) Appetite: Fair Appearance: Older than stated age, Disheveled Psychomotor activity: Lethargic Behavioral: Withdrawn Eye contact: Intense Speech: Soft Affect: Blunted Mood: Neutral Thought processes: Preservative Thought content: Hallucinations (auditory) Suicidal ideations: Absent Homicidal ideations: Absent Orientation: Person, Place, Time Memory intact: Recent Intellect: Average Abstractability: Marginal Concentration: Limited Attention: Limited Judgement: Poor Insight: Poor Vitals Vital Signs Date Time Temp Pulse Resp B/P (MAP) Pulse Ox O2 Delivery O2 Flow Rate FiO2 08/13/24 07:58 98 16 98 Room Air* 0 21 08/13/24 07:58 98.2 144/90 (108) 98.2 Treatment plan discussed: With staff Medication adjusted: Yes Diagnosis: unspecified schizophrenia Plan : Patient was seen by initial telepsychiatry assessment with recommendation for vol hospitalization, pt agreed, but now refuses On re-evaluation, pt is thought blocking, preoccupied but denies having any me ntal health symptoms. denies prior diagnoses of schizophrenia Also, he was bib family for safety concerns and poor compliance Recommend 5150 hold for GD and transfer to inpatient psychiatric facility for stabilization and treatment recommend to continue Risperdal 2mg po BID. Benztropin 0.5mg po BID History of Present Illness Reason for Consult : Re-evaluation, patient with initial telepsych this morning with recommendation for Vol hospitalization, but now refusing and wants dischar ge HPI : This is a 29-year-old male with prior diagnosis of schizophrenia, presents here being brought by family for behaviors at home. Patient reports he was "messing around" by pushing the dog and throwing a rule at glass door. He reports family wants him to get help but reports he's fine. He is asking to go home. He denies any auditory/visual hallucination or paranoid thoughts but has delays in answering questions and appears preoccupied. He is likely minimizing his symptoms. He also has poor insight, reporting he does not have schizophrenia. he reports he was given Risperdal and benztropine just to try it. He also denies suicidal/homicidal ideation Past Psychiatric History : he has hx of schizophrenia. He denies current outpatient follow up. He was prescribed Risperdal and benztropine (unsure of dose or last use). He denies hx of suicide attempt. He reports psych hospital ization was years ago. Past Medical History : He denies Social History : he lives with parents. single, not employed. Per chart review, hx of alcohol and marijuana use, but presently denies. No toxicology available. SHARITA GARCIA DNP August 13, 2024 14:29
[2024-08-13 19:30] VITALS: RESP 18; O2SAT 97
[2024-08-14 09:20] VITALS: PULSE 81; RESP 18; O2SAT 97
[2024-08-14 13:03] VITALS: BP 119/73; PULSE 83; RESP 15; TEMP 97.9; O2SAT 98
== END 2024-08-13 10:14 | disposition short-term general hospital (02) ==
LOC: ER 21:17
DX: F20.9 Schizophrenia, unspecified (principal); I10 Essential (primary) hypertension; F17.210 Nicotine dependence, cigarettes, uncomplicated; F12.90 Cannabis use, unspecified, uncomplicated; Z79.899 Other long term (current) drug therapy
CPT/HCPCS: 36415; 80053; 80320; 80329; 85025

== ENCOUNTER 2024-08-26 21:56 | Emergency (ER) | payer MEDICAID ==
[~2024-08-26] VITALS: Ht 177.8 cm; Wt 110.2 kg
[2024-08-26 22:45] VITALS: BP 114/68; PULSE 88; RESP 14; TEMP 97.5; O2SAT 97
[2024-08-26] MEDS ORDERED: BENZ0.5T PO (23:08)
[2024-08-26] MEDS ORDERED: RISP2TAB28 PO (23:08)
--- NOTE | 2024-08-26 23:26 | ED.PDOC ---
History of Present Illness HPI Comments 29 y/o M presents with auditory and peripheral hallucinations. Poor historian. Patient endorses on history of schizophrenia and is not taking any medications, currently. He denies any suicidal or homicidal ideations and inquires for psychiatric placement to another facility. Chief Complaint: Hallucinations Time Seen by MD: 23:35 Primary Care Provider: NONE Reviewed Notes: Nurses Notes, Medications, Allergies Allergies: Coded Allergies: NO KNOWN ALLERGIES (Unverified , 09/25/22) Home Meds Active Scripts Benztropine Mesylate (Benztropine Mesylate) 0.5 Mg Tab, 0.5 MG PO DAILY, #90 TAB 3 Refills Prov:MIK LOWRY MD 08/26/24 Risperidone (Risperdal) 2 Mg Tab, 2 MG PO DAILY for 90 Days, #90 TAB Prov:MIK LOWRY MD 08/26/24 Hydrocodone-Acetaminophen (Hydrocodone Bitartrate/AC 5-325 mg) 1 Tab Tab, 1 TAB PO Q4HP PRN, #20 TAB Prov:ROSALVA BILL MD 07/01/24 Risperidone (Risperidone) 2 Mg Tab, 1 TAB PO DAILY, #30 TAB Prov:ROSALVA BILL MD 07/01/24 Gabapentin (Once-Daily) (Gabapentin) 300 Mg Tab, 300 MG PO Q6HP PRN, #60 TAB Prov:MIK LOWRY MD 06/25/24 Cyclobenzaprine HCl (Cyclobenzaprine Hydrochlo) 10 Mg Tab, 1 TAB PO Q8HR, #15 TAB As needed for muscle spasm Prov:BHAVANI FERRARA Q THREAD GRINDER 01/14/23 Ibuprofen Micronized (Ibuprofen) 800 Mg Tab, 1 TAB PO Q8HR, #30 TAB As needed for pain take it with food Prov:BHAVANI FERRARA Q THREAD GRINDER 01/14/23 Reported Medications Benztropine Mesylate (Benztropine Mesylate) 0.5 Mg Tab, 1 TAB PO 01/25/23 Information Source: Patient Mode of Arrival: Ambulatory Severity: Moderate Timing: Hours Duration: Since onset Prehospital treatment: None Past Medical History PAST MEDICAL HISTORY: Anxiety, Depression, HTN, Schizophrenia Past Medical History (Other): ADHD, ASD Surgical History (Other): spinal fuision heel fracture repair Family History Family History: Reviewed,noncontributory to illness Social History Smoker: Cigarettes, Less Than 1 Pack/Day Alcohol: Denies ETOH Use Drugs: Marijuana Lives In: Home All Other Systems: Reviewed and Negative (Comprehensive systems review obtained and negative except for what is stated in the HPI.) Physical Exam General Appearance: No Apparent Distress, Obese HEENT: Normal ENT Inspection, Pharynx Normal, TMs Normal Neck: Full Range of Motion, Non-Tender, Normal, Normal Inspection Respiratory: Chest Non-Tender, Lungs Clear, No Accessory Muscle Use, No Respiratory Distress, Normal Breath Sounds Cardiovascular: No Edema, No JVD, No Murmur, No Gallop, Normal Peripheral Pulses, Regular Rate/Rhythm Breast Exam: Deferred Gastrointestinal: No Organomegaly, Non Tender, No Pulsatile Mass, Normal Bowel Sounds, Soft Genitalia: Deferred Pelvic: Deferred Rectal: Deferred Extremities: No calf tenderness, Normal capillary refill, Normal inspection, Normal range of motion, Non-tender, No pedal edema Musculoskeletal : Apperance: Normal Neurologic: Alert, blocker automatic II-XII nml as Tested, No Motor Deficits, Normal Mood, No Sensory Deficits, Other (flat affect, limited insight ) Cerebellar Function: Normal Reflexes: Normal Skin: Dry, Normal Color, Warm Lymphatic: No Adenopathy Was a procedure done? Was a procedure done?: No Differential Dx Considerations may include: schizoaffective disorder, substance abuse, among others X-Ray, Labs, Meds, VS Vital Signs Date Time Temp Pulse Resp B/P (MAP) Pulse Ox O2 Delivery O2 Flow Rate FiO2 08/26/24 22:45 97.5 88 14 114/68 (83) 97 97.5 Time of 1ST Reevaluation: 00:05 Reevaluation 1ST: Unchanged Patient Education/Counseling: Other (ED observation ) Family Education/Counseling: No Family Present Departure 1 Departure Time of Disposition: 00:30 Impression: Primary Impression: Schizophrenia Disposition: 01 HOME / SELF CARE / HOMELESS Condition: Stable Additional Instructions: Follow up with your Primary Physician Return to the Emergency Department for any worsening symptoms or concerns e-Prescriptions Benztropine Mesylate (Benztropine Mesylate) 0.5 Mg Tab 0.5 MG PO DAILY, #90 TAB 3 Refills Prov: MIK LOWRY MD 08/26/24 Risperidone (Risperdal) 2 Mg Tab 2 MG PO DAILY for 90 Days, #90 TAB Prov: MIK LOWRY MD 08/26/24 Discharged With: Self Critical Care Note Critical Care Time?: No Stability Stability form required: No Heart Score Heart Score: Heart Score Response (Comments) Value History N/A 0 EKG N/A 0 Age N/A 0 Risk Factors N/A 0 Troponin N/A 0 Total 0 I personally scribed for MIK LOWRY MD ([email or web address]) on 08/26/24 at 23:26. Electronically submitted by Markos Hernandez ([email or web address]). MIK LOWRY MD Aug 26, 2024 23:26
[2024-08-27] MEDS ORDERED: TRAZ1TAB12 PO (20:59)
== END 2024-08-27 00:30 | disposition home or self-care (01) ==
LOC: ER 21:56
DX: F20.9 Schizophrenia, unspecified (principal); F17.210 Nicotine dependence, cigarettes, uncomplicated; F19.90 Other psychoactive substance use, unspecified, uncomplicated; I10 Essential (primary) hypertension; F32.A Depression, unspecified; F41.9 Anxiety disorder, unspecified; F84.0 Autistic disorder; Z79.899 Other long term (current) drug therapy; Z98.890 Other specified postprocedural states

== ENCOUNTER 2024-08-27 20:20 | Emergency (ER) | payer MEDICAID ==
[~2024-08-27] VITALS: Ht 177.8 cm; Wt 93.3 kg
[~2024-08-27 20:20] MED LIST changes: +RISP2TAB28 PO
[2024-08-27] MEDS ORDERED: TRAZ1TAB12 PO (20:59)
--- NOTE | 2024-08-27 21:18 | ED.PDOC ---
History of Present Illness HPI Comments 29 year old male presents to the ED with a chief complaint of mental health onset today (08/27/24). Patient is a poor historian, states he has no complaints, came to ED to request a ride to [facility]. PMHx Schizophrenia, bipolar disorder, depression. Denies suicidal ideation, homicidal ideation, hallucination, chest pain, shortness of breath, fevers, chills. No other symptoms or modifying factors present at this time. Chief Complaint: Mental Health Time Seen by MD: 21:00 Primary Care Provider: NONE Reviewed Notes: Medications, Allergies Allergies: Coded Allergies: NO KNOWN ALLERGIES (Unverified , 09/25/22) Home Meds Active Scripts Trazodone Hcl (Trazodone Hcl) 150 Mg Tab, 1 TAB PO QPM for 90 Days, #90 TAB 2 Refills Prov:MIK LOWRY MD 08/27/24 Benztropine Mesylate (Benztropine Mesylate) 0.5 Mg Tab, 0.5 MG PO DAILY, #90 TAB 3 Refills Prov:MIK LOWRY MD 08/26/24 Risperidone (Risperdal) 2 Mg Tab, 2 MG PO DAILY for 90 Days, #90 TAB Prov:MIK LOWRY MD 08/26/24 Hydrocodone-Acetaminophen (Hydrocodone Bitartrate/AC 5-325 mg) 1 Tab Tab, 1 TAB PO Q4HP PRN, #20 TAB Prov:ROSALVA BILL MD 07/01/24 Risperidone (Risperidone) 2 Mg Tab, 1 TAB PO DAILY, #30 TAB Prov:ROSALVA BILL MD 07/01/24 Gabapentin (Once-Daily) (Gabapentin) 300 Mg Tab, 300 MG PO Q6HP PRN, #60 TAB Prov:MIK LOWRY MD 06/25/24 Cyclobenzaprine HCl (Cyclobenzaprine Hydrochlo) 10 Mg Tab, 1 TAB PO Q8HR, #15 TAB As needed for muscle spasm Prov:BHAVANI FERRARA Q REFINISHER 01/14/23 Ibuprofen Micronized (Ibuprofen) 800 Mg Tab, 1 TAB PO Q8HR, #30 TAB As needed for pain take it with food Prov:BHAVANI FERRARA Q REFINISHER 01/14/23 Reported Medications Benztropine Mesylate (Benztropine Mesylate) 0.5 Mg Tab, 1 TAB PO 01/25/23 Information Source: Patient Mode of Arrival: Ambulatory Severity: Moderate Timing: Hours Duration: Since onset Prehospital treatment: None Past Medical History PAST MEDICAL HISTORY: Anxiety, Depression, HTN, Schizophrenia Surgical History: Denies all surgeries Family History Family History: Reviewed,noncontributory to illness Social History Smoker: Cigarettes, Less Than 1 Pack/Day Alcohol: Denies ETOH Use Drugs: Marijuana Lives In: Home Constitutional: denies: chills, diaphoresis, fatigue, fever, malaise, sweats, weakness, others EENTM: denies: blurred vision, double vision, ear bleeding, ear discharge, ear drainage, ear pain, ear ringing, eye pain, eye redness, hearing loss, mouth pain, mouth swelling, nasal discharge, nose bleeding, nose congestion, nose pain, photophobia, tearing, throat pain, throat swelling, voice changes, others Respiratory: denies: cough, hemoptysis, orthopnea, SOB at rest, shortness of breath, SOB with excertion, stridor, wheezing, others Cardiovascular: denies: chest pain, dizzy spells, diaphoresis, Dyspnea on exertion, edema, irregular heart beat, left arm pain, lightheadedness, palpitations, PND, syncope, others Gastrointestinal: denies: abdomen distended, abdominal pain, blood streaked bowels, constipated, diarrhea, dysphagia, difficulty swallowing, hematemesis, melena, nausea, poor appetite, poor fluid intake, rectal bleeding, rectal pain, vomiting, others Genitourinary: denies: burning, dysuria, flank pain, frequency, hematuria, incontinence, penile discharge, penile sore, pain, testicle pain, testicle swelling, urgency, others Neurological: denies: dizziness, fainting, headache, left sided numbness, left sided weakness, numbness, paresthesia, pre-existing deficit, right sided numbness, right sided weakness, seizure, speech problems, tingling, tremors, weakness, others Musculoskeletal: denies: back pain, gout, joint pain, joint swelling, muscle pain, muscle stiffness, neck pain, others Integumetry: denies: bruises, change in color, change in hair/nails, dryness, laceration, lesions, lumps, rash, wounds, others Allergic/Immunocompromised: denies: Difficulty Healing, Frequent Infections, Hives, Itching, others Hematologic/Lymphatic: denies: anemia, blood clots, easy bleeding, easy bruising, swollen glands, others Endocrine: denies: excessive hunger, excessive sweating, excessive thirst, excessive urination, flushing, intolerance to cold, intolerance to heat, unexplained weight gain, unexplained weight loss, others Psychiatric: denies: anxiety, bipolar disorder, depression, hopeless, panic disorder, schizophrenia, sleepless, suicidal, others All Other Systems: Reviewed and Negative Physical Exam General Appearance: Normal HEENT: Normal ENT Inspection, Pharynx Normal, TMs Normal Neck: Full Range of Motion, Non-Tender, Normal, Normal Inspection Respiratory: Chest Non-Tender, Lungs Clear, No Accessory Muscle Use, No Respir atory Distress, Normal Breath Sounds Cardiovascular: No Edema, No JVD, No Murmur, No Gallop, Normal Peripheral Pulses, Regular Rate/Rhythm Breast Exam: Deferred Gastrointestinal: No Organomegaly, Non Tender, No Pulsatile Mass, Normal Bowel Sounds, Soft Genitalia: Deferred Pelvic: Deferred Rectal: Deferred Extremities: No calf tenderness, Normal capillary refill, Normal inspection, Normal range of motion, Non-tender, No pedal edema Musculoskeletal : Apperance: Normal Neurologic: Alert, drilling assistant II-XII nml as Tested, No Motor Deficits, Normal Affect, Normal Mood, No Sensory Deficits Cerebellar Function: Normal Reflexes: Normal Skin: Dry, Normal Color, Warm Lymphatic: No Adenopathy Was a procedure done? Was a procedure done?: No Differential Dx Considerations may include: Differential diagnosis includes but is not limited to: encephalitis, encephalopathy, toxic overdose, traumatic injury, infectious process, hypovol emia and others X-Ray, Labs, Meds, VS Vital Signs Date Time Temp Pulse Resp B/P (MAP) Pulse Ox O2 Delivery O2 Flow Rate FiO2 08/27/24 21:07 98.5 88 16 146/107 (120) 98 98.5 Lab Test 08/27/24 21:53 Range/Units White Blood Count 6.2 4.4-10.8 10^3/uL Red Blood Count 5.05 4.5-5.90 10^6/uL Hemoglobin 15.3 13.5-17.5 g/dL Hematocrit 45.5 41.0-53.0 % Mean Corpuscular Volume 89.9 80.0-100.0 fL Mean Corpuscular Hemoglobin 30.2 28.0-32.0 pg Mean Corpuscular Hemoglobin Concent 33.6 32.0-36.0 g/dL Red Cell Distribution Width 13.3 11.8-14.3 % Platelet Count 215 140-450 10^3/uL Mean Platelet Volume 8.3 6.9-10.8 fL Neutrophils (%) (Auto) 59.9 37.0-80.0 % Lymphocytes (%) (Auto) 28.5 10.0-50.0 % Monocytes (%) (Auto) 7.1 0.0-12.0 % Eosinophils (%) (Auto) 4.0 0.0-7.0 % Basophils (%) (Auto) 0.5 0.0-2.0 % Neutrophils # (Auto) 3.7 1.6-8.6 10 ^3/uL Lymphocytes # (Auto) 1.8 0.4-5.4 10 ^3/uL Monocytes # (Auto) 0.4 0-1.3 10 ^3/uL Eosinophils # (Auto) 0.3 0-0.8 10 ^3/uL Basophils # (Auto) 0 0-0.2 10 ^3/uL Nucleated Red Blood Cells 0.1 % Sodium Level 140 136-145 mmol/L Potassium Level 4.0 3.5-5.1 mmol/L Chloride Level 106 98-107 mmol/L Carbon Dioxide Level 25 20-31 mmol/L Anion Gap 9 5-15 Blood Urea Nitrogen 10 9-23 mg/dL Creatinine 1.05 0.700-1.30 mg/dL Glomerular Filtration Rate Calc 97 >90 mL/min BUN/Creatinine Ratio 9.5 L 10.0-20.0 Serum Glucose 156 H 74-106 mg/dL Calcium Level 9.8 8.7-10.4 mg/dL Total Bilirubin 0.5 0.2-1.0 mg/dL Aspartate Amino Transferase (AST) 62 H 13-40 U/L Alanine Aminotransferase (ALT) 126 H 7-40 U/L Alkaline Phosphatase 90 46-116 U/L Total Protein 7.3 5.7-8.2 g/dL Albumin 4.6 3.2-4.8 g/dL Salicylates Level < 3.0 -30 mg/dL Acetaminophen Level < 2.0 L 10.0-20.0 UG/ML Plasma/Serum Blood Alcohol 3.8 <10 mg/dL Time of 1ST Reevaluation: 21:30 Reevaluation 1ST: Unchanged Time of 2ND Reevaluation: 22:59 Reevaluation 2ND: Unchanged (PATIENT IS CLEARED MEDICALLY AT THIS TIME, AWAITING PSYCH EVALUATION) Consultation: Psychiatry (patient requesting inpatient psych svcs. ), Other Patient Education/Counseling: Diagnosis, Treatment, Prognosis Family Education/Counseling: No Family Present Departure 1 Departure Time of Disposition: 04:34 Impression: Primary Impression: Schizophrenia Disposition: 30 STILL A PATIENT Condition: Stable Additional Instructions: Follow up with your Primary Physician Return to the Emergency Department for any worsening symptoms or concerns e-Prescriptions Trazodone Hcl (Trazodone Hcl) 150 Mg Tab 1 TAB PO QPM for 90 Days, #90 TAB 2 Refills Prov: MIK LOWRY MD 08/27/24 Comments Patient awaiting mental health evaluation. Patient does not seem to have any active suicidal or homicidal ideations. Patient is requesting psychiatric inpatient care. Critical Care Note Critical Care Time?: No Stability Stability form required: No Heart Score Heart Score: Heart Score Response (Comments) Value History N/A 0 EKG N/A 0 Age N/A 0 Risk Factors N/A 0 Troponin N/A 0 Total 0 I personally scribed for MIK LOWRY MD ([email or web address]) on 08/27/24 at 21:18. Electronically submitted by Candice Hutchins ([email or web address]). MIK LOWRY MD Aug 27, 2024 21:18
[2024-08-27 22:04] LABS: Basophils # (auto) 0 10 ^3/uL (0-0.2); Basophils % (auto) 0.5 % (0.0-2.0); Eosinophils # (auto) 0.3 10 ^3/uL (0-0.8); Hematocrit 45.5 % (41.0-53.0); Hemoglobin 15.3 g/dL (13.5-17.5); Lymphocytes # (auto) 1.8 10 ^3/uL (0.4-5.4); Lymphocytes % (auto) 28.5 % (10.0-50.0); Mean Corpuscular Hemoglobin 30.2 pg (28.0-32.0); Mean Corpuscular Hgb Conc. 33.6 g/dL (32.0-36.0); Mean Corpuscular Volume 89.9 fL (80.0-100.0); Monocytes # (auto) 0.4 10 ^3/uL (0-1.3); Monocytes % (auto) 7.1 % (0.0-12.0); Neutrophils # (auto) 3.7 10 ^3/uL (1.6-8.6); Neutrophils % (auto) 59.9 % (37.0-80.0); Nucleated Red Blood Cells % 0.1 %; Platelet Count (auto) 215 10^3/uL (140-450); Red Blood Cells 5.05 10^6/uL (4.5-5.90); Red Cell Distribution Width 13.3 % (11.8-14.3); White Blood Cell 6.2 10^3/uL (4.4-10.8)
[2024-08-27 22:19] LABS: Acetaminophen < 2.0 UG/ML (10.0-20.0); Albumin 4.6 g/dL (3.2-4.8); Alkaline Phosphatase 90 U/L (46-116); Anion Gap 9 (5-15); BUN/Creatinine Ratio 9.5 (10.0-20.0); Bilirubin, Total 0.5 mg/dL (0.2-1.0); Blood Alcohol 3.8 mg/dL (<10); Blood Urea Nitrogen 10 mg/dL (9-23); Calcium 9.8 mg/dL (8.7-10.4); Carbon Dioxide 25 mmol/L (20-31); Chloride 106 mmol/L (98-107); Salicylate < 3.0 mg/dL (-30); Sodium 140 mmol/L (136-145); Total Protein 7.3 g/dL (5.7-8.2)
[2024-08-27 22:21] LABS: Alanine Aminotransferase 126 U/L (7-40); Aspartate Aminotransferase 62 U/L (13-40); Glucose 156 mg/dL (74-106)
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
[2024-08-28 07:25] VITALS: BP 109/63; PULSE 71; RESP 16; TEMP 97.5; O2SAT 96
[2024-08-28] MEDS: risperiDONE 1 MG TAB PO ONE (09:30)
[2024-08-28] MEDS: BENZTROPINE MESY 0.5 MG TAB PO ONE (09:30)
== END 2024-08-28 10:40 | disposition short-term general hospital (02) ==
LOC: ER 20:20
DX: F20.9 Schizophrenia, unspecified (principal); F17.210 Nicotine dependence, cigarettes, uncomplicated; F19.90 Other psychoactive substance use, unspecified, uncomplicated; F41.9 Anxiety disorder, unspecified; F32.A Depression, unspecified; E66.3 Overweight; I10 Essential (primary) hypertension; Z79.899 Other long term (current) drug therapy; Z68.29 Body mass index [BMI] 29.0-29.9, adult
CPT/HCPCS: 36415; 80053; 80320; 80329; 85025

== ENCOUNTER 2024-11-02 12:58 | Emergency (ER) | payer MEDICAID ==
[~2024-11-02] VITALS: Ht 228.6 cm; Wt 93.3 kg
[~2024-11-02 12:58] MED LIST changes: +TRAZ1TAB12 PO
--- NOTE | 2024-11-02 16:11 | ED.PDOC ---
History of Present Illness HPI Comments 29-year-old male dropped up by parents because he was cutting his left forearm 6 hours prior to coming to the ER. Patient unable to give a good history. He does have a history of schizophrenia has a tried to harm himself in the past. There are superficial burgos on the left forearm with healed wounds. Denies any other symptoms. Chief Complaint: Mental Health Time Seen by MD: 13:29 Primary Care Provider: NONE Reviewed Notes: Nurses Notes, Medications, Allergies Allergies: Coded Allergies: NO KNOWN ALLERGIES (Unverified , 09/25/22) Home Meds Active Scripts Trazodone Hcl (Trazodone Hcl) 150 Mg Tab, 1 TAB PO QPM for 90 Days, #90 TAB 2 Refills Prov:MIK LOWRY MD 08/27/24 Benztropine Mesylate (Benztropine Mesylate) 0.5 Mg Tab, 0.5 MG PO DAILY, #90 TAB 3 Refills Prov:MIK LOWRY MD 08/26/24 Risperidone (Risperdal) 2 Mg Tab, 2 MG PO DAILY for 90 Days, #90 TAB Prov:MIK LOWRY MD 08/26/24 Hydrocodone-Acetaminophen (Hydrocodone Bitartrate/AC 5-325 mg) 1 Tab Tab, 1 TAB PO Q4HP PRN, #20 TAB Prov:ROSALVA BILL MD 07/01/24 Risperidone (Risperidone) 2 Mg Tab, 1 TAB PO DAILY, #30 TAB Prov:ROSALVA BILL MD 07/01/24 Gabapentin (Once-Daily) (Gabapentin) 300 Mg Tab, 300 MG PO Q6HP PRN, #60 TAB Prov:MIK LOWRY MD 06/25/24 Cyclobenzaprine HCl (Cyclobenzaprine Hydrochlo) 10 Mg Tab, 1 TAB PO Q8HR, #15 TAB As needed for muscle spasm Prov:BHAVANI FERRARA Q [employer] OPERATOR 01/14/23 Ibuprofen Micronized (Ibuprofen) 800 Mg Tab, 1 TAB PO Q8HR, #30 TAB As needed for pain take it with food Prov:BHAVANI FERRARA [employer]LE[employer] OPERATOR 01/14/23 Reported Medications Benztropine Mesylate (Benztropine Mesylate) 0.5 Mg Tab, 1 TAB PO 01/25/23 Information Source: Patient Mode of Arrival: Ambulatory Severity: Moderate Timing: Hours Duration: Since onset Past Medical History PAST MEDICAL HISTORY: Anxiety, Depression, HTN, Schizophrenia Surgical History: Denies all surgeries Family History Family History: Reviewed,noncontributory to illness Social History Smoker: Cigarettes, Less Than 1 Pack/Day Alcohol: Denies ETOH Use Drugs: Marijuana Lives In: Home Constitutional: denies: chills, diaphoresis, fatigue, fever, malaise, sweats, weakness, others EENTM: denies: blurred vision, double vision, ear bleeding, ear discharge, ear drainage, ear pain, ear ringing, eye pain, eye redness, hearing loss, mouth pain, mouth swelling, nasal discharge, nose bleeding, nose congestion, nose pain, photophobia, tearing, throat pain, throat swelling, voice changes, others Respiratory: denies: cough, hemoptysis, orthopnea, SOB at rest, shortness of breath, SOB with excertion, stridor, wheezing, others Cardiovascular: denies: chest pain, dizzy spells, diaphoresis, Dyspnea on exertion, edema, irregular heart beat, left arm pain, lightheadedness, palpitations, PND, syncope, others Gastrointestinal: denies: abdomen distended, abdominal pain, blood streaked bowels, constipated, diarrhea, dysphagia, difficulty swallowing, hematemesis, melena, nausea, poor appetite, poor fluid intake, rectal bleeding, rectal pain, vomiting, others Genitourinary: denies: burning, dysuria, flank pain, frequency, hematuria, incontinence, penile discharge, penile sore, pain, testicle pain, testicle swelling, urgency, others Neurological: denies: dizziness, fainting, headache, left sided numbness, left sided weakness, numbness, paresthesia, pre-existing deficit, right sided numbness, right sided weakness, seizure, speech problems, tingling, tremors, weakness, others Musculoskeletal: denies: back pain, gout, joint pain, joint swelling, muscle pain, muscle stiffness, neck pain, others Integumetry: denies: bruises, change in color, change in hair/nails, dryness, laceration, lesions, lumps, rash, wounds, others Allergic/Immunocompromised: denies: Difficulty Healing, Frequent Infections, Hives, Itching, others Hematologic/Lymphatic: denies: anemia, blood clots, easy bleeding, easy bruising, swollen glands, others Endocrine: denies: excessive hunger, excessive sweating, excessive thirst, excessive urination, flushing, intolerance to cold, intolerance to heat, unexplained weight gain, unexplained weight loss, others Psychiatric: reports: suicidal; denies: anxiety, bipolar disorder, depression, hopeless, panic disorder, schizophrenia, sleepless, others Physical Exam General Appearance: Moderate Distress HEENT: Normal ENT Inspection, Pharynx Normal, TMs Normal Neck: Full Range of Motion, Non-Tender, Normal, Normal Inspection Respiratory: Chest Non-Tender, Lungs Clear, No Accessory Muscle Use, No Respiratory Distress, Normal Breath Sounds Cardiovascular: No Edema, No JVD, No Murmur, No Gallop, Normal Peripheral Pulses, Regular Rate/Rhythm Breast Exam: Deferred Gastrointestinal: No Organomegaly, Non Tender, No Pulsatile Mass, Normal Bowel Sounds, Soft Genitalia: Deferred Pelvic: Deferred Rectal: Deferred Extremities: No calf tenderness, Normal capillary refill, Normal inspection, Normal range of motion, Non-tender, No pedal edema Musculoskeletal : Apperance: Normal Neurologic: Alert, 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 Was a procedure done?: No Differential Dx Considerations may include: Suicidal ideation Electrolyte imbalance X-Ray, Labs, Meds, VS Vital Signs Date Time Temp Pulse Resp B/P (MAP) Pulse Ox O2 Delivery O2 Flow Rate FiO2 11/02/24 13:03 98.3 90 16 124/79 100 98.3 Patient alert. History of psychiatric illness. Vitals stable. Answering questions. Ambulating. Saturation pristine on room air. Has wounds in the left forearm. Unable to get a good history from the patient. Medically cleared. Psychiatric evaluation. Continue monitoring. Time of 1ST Reevaluation: 16:09 Reevaluation 1ST: Unchanged Patient Education/Counseling: Diagnosis, Treatment, Prognosis Family Education/Counseling: No Family Present SEPSIS Sepsis Screen Date sepsis recognized/suspect: Nov 02, 2024 Time Sepsis recognized/suspect: 1316 Recent Procedure: No On Antibiotic Therapy: No Respiratory Rate >20: No Heart Rate >90: No Temp<36 C (96.8 F) or >38.3 C: No SBP <90 or MAP <65 mmHG: No New Acute Mental Status Change: No Is the patient on CPAP, BIPAP,: No Physician Orders Drug Screen (11/02/24 14:13) *Tele Psych Consult (11/02/24 14:13) Vital Signs Date Time Temp Pulse Resp B/P (MAP) Pulse Ox O2 Delivery O2 Flow Rate FiO2 11/02/24 13:03 98.3 90 16 124/79 100 98.3 Departure 1 Departure Time of Disposition: 16:10 Impression: Primary Impression: Suicidal ideation Disposition: 30 STILL A PATIENT Condition: Good Discharged With: Self Critical Care Note Critical Care Time?: No Stability Stability form required: No Heart Score Heart Score: Heart Score Response (Comments) Value History N/A 0 EKG N/A 0 Age N/A 0 Risk Factors N/A 0 Troponin N/A 0 Total 0 RODY SIEGEL MD Nov 02, 2024 16:11
--- NOTE | 2024-11-03 04:15 | DVHINCON2 ---
Date of Service if different f: Nov 03, 2024 Time of Service: 03:49 Consult Consult Note PSYCHIATRY ED NEW CONSULT HPI: 29 yo M pt with PPH of schizophrenia presents to ED BIB friend for safety, psychiatric stabilization, and possible med initiation/optimization in setting of SIB. Psychiatry consulted for safety evaluation and recommendations in context of current presentation. Of note, pt w/freq ED visits for similar cc/presentation Per pt, reports "my parents kicked me out of house because i was cutting my wrist out of boredom". Pt adamantly denies cutting as suicide attempt/gesture or intention to self harm. Pt admits cutting, although intentional, was due to boredom and to "feel some pain". Pt does express some remorse/regret for cutting I am not going to do it again Currently denies depressed mood, hopelessness, helplessness, isolation, negative thoughts, or anhedonia. Denies anxiety/panic/OCD/PTSD symptoms. Also denies AVH/paranoia/catatonic/perceptual disturbances. Sleep/appetite/energy/conc relatively WNL. Adamantly denies SI/HI. No overt manic, psychotic, MDD, cognitive, dissociative, panic, OCD, PTSD, or somatic symptoms noted although pt limited historian with marginal J/I and appears to have baseline thought disorder in setting of SPMI dx. Denies acute psychosocial stressors Pt currently does not have active outpt MH services established at this time. 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 Denies FH of psych hospitalizations, suicide attempts, or completed suicides No acute medical/chronic pain issues, hx of seizures/TBI, or recent head injuries, NKDA Some hx of SI/SIB via cutting, no hx of SA/PSG noted although has had several prior psych hospitalizations for psychosis including recent admission several months ago at [facility] on GD hold. Denies history of violence, unprovoked aggression, or assaultive behaviors. Denies any legal problems Currently denies SI/HI/AVH. Does not have access to firearms. No safety concerns noted throughout encounter MSE: General Appearance/Behavior: Alert and partially awake; appears stated age, overweight, marginal/fair grooming and hygiene; calm and cooperative, marginal eye contact, mild PMR Speech: coherent, latency, not overly spontaneous, monotone Thought Process: linear, logical, concrete, somewhat limited Thought Content: Abnormal Thoughts and Perceptions: denies dissociative symptoms Homicidality / Violent Thoughts: adamantly denies HI Suicidality: adamantly denies SI Hallucinations: denies AVH Delusions: denies PI Obsessions /compulsions: None Judgment and Insight: marginal/limited Mood & Affect: "okay" with mood-congruent, somewhat restricted/confused Orientation: oriented to person, place, time Attention/Concentration: appears intact Cognition: grossly intact Assessment: 29 yo M pt with PPH of schizophrenia presents to ED BIB friend for safety, psychiatric stabilization, and possible med initiation/optimization in setting of SIB. Of note, pt w/freq ED visits for similar cc/presentation and well known to report writer from prior admissions Currently denies SI/HI/AVH. Admits to superficial cutting out of boredom, pt wlong hx of SIB via cutting, denies cutting as SA or to harm self. Of note, pt limited historian with marginal/limited J/I and appears to have baseline thought disorder in setting of SPMI dx Does not presently show any signs of immediate danger to self/others or GD that would necessitate 5150 or involuntary psych admission. However offered voluntary psych hospitalization but pt declined. Also declined further ED observation/reevaluation. No acute safety concerns noted. Acute suicide risk appears nonexistent to relatively low Pts symptoms should be managed safely in an outpatient setting Currently rx'd Risperdal 2 mg bid and Benztropine 1 mg bid but has not been compliant for past several weeks, long hx of med noncompliance noted, med compliance emphasized during todays visit Primary Diagnosis: Schizophrenia, CUT. ETOH/THC use d/o, unspecified remission Plan: Does not warrant involuntary inpatient psychiatric hospitalization or 5150 hold No acute safety concerns Pt can be safely discharged back to current residence Resume current outpatient psychotropics above- med compliance emphasized (possibly consider [facility] due to long hx of med noncompliance to PO meds) No med changes or additional meds needed at this time Supportive tx provided, discussed safety plan with pt Emphasized sleep hygiene, exercise, healthy nutrition, LIMIT THC/EtOH intake, abstain from IDU, and social activation Encouraged mindfulness techniques (reading, walking, meditation, journaling, exercise, deep breathing) during times of stress RATHER THAN CUTTING Would benefit from establishing community MH services for psychotx/psychiatric med initiation/management please provide pt MH resources prior to discharge per pts request Encouraged f/u with PCP for routine medical/preventive care Instructed pt to call/text [phone] or return to ED if MH symptoms worsen or new onset SI/HI upon discharge low threshold for inpt psych admission if pt returns with similar CC/presentation Pt verbalized understanding and is receptive to above tx plan This case was discussed with ED nurse/provider and all parties in agreement with above tx plan Kareem Hanks MD Plan discussed with: Patient KAREEM HANKS MD Nov 03, 2024 04:15
[2024-11-03 05:06] VITALS: PULSE 66; RESP 17; O2SAT 99
[2024-11-03 07:45] VITALS: BP 127/82; PULSE 72; RESP 16; TEMP 98; O2SAT 100
--- NOTE | 2024-11-03 08:20 | ED.PDOC ---
Departure 1 Departure Time of Disposition: 16:10 Impression: Primary Impression: Suicidal ideation Disposition: 01 HOME / SELF CARE / HOMELESS Condition: Stable Discharged With: Self OK LEMUS MD Nov 03, 2024 08:20
== END 2024-11-03 08:40 | disposition home or self-care (01) ==
LOC: ER 12:58
DX: S51.812A Laceration without foreign body of left forearm, initial encounter (principal); I10 Essential (primary) hypertension; F41.9 Anxiety disorder, unspecified; F17.210 Nicotine dependence, cigarettes, uncomplicated; F20.9 Schizophrenia, unspecified; F32.A Depression, unspecified; Z79.899 Other long term (current) drug therapy; W45.8XXA Other foreign body or object entering through skin, initial encounter; Y93.89 Activity, other specified; Y92.89 Other specified places as the place of occurrence of the external cause; Y99.8 Other external cause status

== ENCOUNTER 2025-01-16 19:58 | Emergency (ER) | payer MEDICAID ==
[~2025-01-16] VITALS: Ht 175.3 cm; Wt 81.8 kg
[2025-01-16 20:27] LABS: Hematocrit 50.8 % (41.0-53.0); Hemoglobin 17.1 g/dL (13.5-17.5); Mean Corpuscular Hemoglobin 30.6 pg (28.0-32.0); Mean Corpuscular Volume 90.7 fL (80.0-100.0); Nucleated Red Blood Cells % 0.0 %
--- NOTE | 2025-01-16 20:40 | DVH ---
CHEST RADIOGRAPH Indication: inhaled mercury Technique: Frontal and lateral view of the chest was obtained Comparison: CT CT ANGIO CHEST CONTRAST on DOS: 01/24/23, XY CHEST XRAY 1 VIEW on DOS: 01/24/23 FINDINGS: Lines and Tubes: None Lungs: Clear Pleura: No effusion. No pneumothorax. Cardiomediastinal contours: Unremarkable Bones: Unremarkable IMPRESSION: 1. No evidence of acute disease.
[2025-01-16 20:43] LABS: Alkaline Phosphatase 109 U/L (46-116); Anion Gap 9 (5-15); BUN/Creatinine Ratio 7.3 (10.0-20.0); Calcium 9.9 mg/dL (8.7-10.4); Carbon Dioxide 28 mmol/L (20-31); Chloride 102 mmol/L (98-107); Potassium 4.3 mmol/L (3.5-5.1); Sodium 139 mmol/L (136-145)
[2025-01-16 20:44] LABS: Bilirubin, Total 0.4 mg/dL (0.2-1.0)
[2025-01-16 20:47] LABS: Alanine Aminotransferase 169 U/L (7-40); Albumin 5.2 g/dL (3.2-4.8); Blood Urea Nitrogen 8 mg/dL (9-23); Glucose 153 mg/dL (74-106); Total Protein 8.6 g/dL (5.7-8.2)
--- NOTE | 2025-01-16 20:47 | ED.PDOC ---
SOB-HPI HPI Comments 29-year-old male presents to the ED chief complaint inhalation of mercury. Patient states incident happened around 5:00 p.m. today. Patient reports ordered decorations for the holiday made of mercury. He notes opened it up and was curious on how it smell and inhaled some Hg. He is complaining of some dizziness and nausea notes no shortness of breath chest pain or difficulty breathing. Denies any other concerns at this time. Chief Complaint: Inhalation Time Seen by MD: 20:01 Primary Care Provider: NONE Reviewed notes: Nurses Notes, Medications, Allergies Information Source: Patient Mode of Arrival: Ambulatory Past Medical History PAST MEDICAL HISTORY: Anxiety, Depression, HTN, Schizophrenia Surgical History: Denies all surgeries Family History Family History: Reviewed,noncontributory to illness Social History Smoker: Cigarettes, Less Than 1 Pack/Day Alcohol: Denies ETOH Use Drugs: Marijuana Lives In: Home All Other Systems: Reviewed and Negative (see hpi) Physical Exam General Appearance: No Apparent Distress, Normal HEENT: Normal ENT Inspection, Pharynx Normal, TMs Normal Neck: Full Range of Motion, Non-Tender Respiratory: Chest Non-Tender, Lungs Clear, No Accessory Muscle Use, No Respiratory Distress, Normal Breath Sounds Cardiovascular: No Edema, No JVD, No Murmur, No Gallop, Normal Peripheral Pulses, Regular Rate/Rhythm Breast Exam: Deferred Gastrointestinal: No Organomegaly, Non Tender, No Pulsatile Mass, Normal Bowel Sounds, Soft Genitalia: Deferred Pelvic: Deferred Rectal: Deferred Extremities: Normal capillary refill, Normal range of motion, Non-tender, No pedal edema Musculoskeletal : Apperance: Normal Neurologic: Alert, No Motor Deficits, Normal Affect, Normal Mood, No Sensory Deficits Cerebellar Function: Normal Reflexes: NOT DONE Skin: Dry, Normal Color, Warm Lymphatic: No Adenopathy Was a procedure done? Was a procedure done?: No Differential Dx Differential Diagnosis: Dysrhythmia, Pneumonia, Pulmonary Embolism X-Ray, Labs, Meds, VS Vital Signs Date Time Temp Pulse Resp B/P (MAP) Pulse Ox O2 Delivery O2 Flow Rate FiO2 01/16/25 20:01 98.9 93 18 147/109 98 98.9 Lab Test 01/16/25 20:18 Range/Units White Blood Count 10.1 4.4-10.8 10^3/uL Red Blood Count 5.60 4.5-5.90 10^6/uL Hemoglobin 17.1 13.5-17.5 g/dL Hematocrit 50.8 41.0-53.0 % Mean Corpuscular Volume 90.7 80.0-100.0 fL Mean Corpuscular Hemoglobin 30.6 28.0-32.0 pg Mean Corpuscular Hemoglobin Concent 33.8 32.0-36.0 g/dL Red Cell Distribution Width 13.1 11.8-14.3 % Platelet Count 236 140-450 10^3/uL Mean Platelet Volume 9.0 6.9-10.8 fL Neutrophils (%) (Auto) 78.1 37.0-80.0 % Lymphocytes (%) (Auto) 15.5 10.0-50.0 % Monocytes (%) (Auto) 4.3 0.0-12.0 % Eosinophils (%) (Auto) 1.5 0.0-7.0 % Basophils (%) (Auto) 0.6 0.0-2.0 % Neutrophils # (Auto) 7.9 1.6-8.6 10 ^3/uL Lymphocytes # (Auto) 1.6 0.4-5.4 10 ^3/uL Monocytes # (Auto) 0.4 0-1.3 10 ^3/uL Eosinophils # (Auto) 0.1 0-0.8 10 ^3/uL Basophils # (Auto) 0.1 0-0.2 10 ^3/uL Nucleated Red Blood Cells 0.0 % Sodium Level 139 136-145 mmol/L Potassium Level 4.3 3.5-5.1 mmol/L Chloride Level 102 98-107 mmol/L Carbon Dioxide Level 28 20-31 mmol/L Anion Gap 9 5-15 Blood Urea Nitrogen 8 L 9-23 mg/dL Creatinine 1.10 0.700-1.30 mg/dL Glomerular Filtration Rate Calc 92 >90 mL/min BUN/Creatinine Ratio 7.3 L 10.0-20.0 Serum Glucose 153 H 74-106 mg/dL Calcium Level 9.9 8.7-10.4 mg/dL Total Bilirubin 0.4 0.2-1.0 mg/dL Aspartate Amino Transferase (AST) 62 H 13-40 U/L Alanine Aminotransferase (ALT) 169 H 7-40 U/L Alkaline Phosphatase 109 46-116 U/L Total Protein 8.6 H 5.7-8.2 g/dL Albumin 5.2 H 3.2-4.8 g/dL X-Ray, Labs, Meds, VS Comment Chest Xray --- FINDINGS: Lines and Tubes: None Lungs: Clear Pleura: No effusion. No pneumothorax. Cardiomediastinal contours: Unremarkable Bones: Unremarkable IMPRESSION: 1. No evidence of acute disease. LABS: CBC with no abnormal findings CMP incidental finding elevated liver enzymes. Elevated glucose patient states eight proximally an hour prior to arrival non fa sting. Poison control was notified. Recommendations discussed stated if patient heated it up the mercury in inhaled the vapors then possible chemical mills. However, patient states he just opened up the can and significant at room temperature. Patient's chest x-ray shows no acute pulmonary findings patient was placed on 2 L of oxygen he notes dizziness status resolved reports improvement requesting discharge at this time. Advised patient to follow up with his PCP regarding the enzymes repeat blood work. Advised to rest increase p.o. fluids with electrolytes. ER return precautions given patient indicates understanding agrees with discharge plan of care. Time of 1ST Reevaluation: 20:10 Reevaluation 1ST: Unchanged Reevaluation 2ND: Improved Patient Education/Counseling: Diagnosis, Treatment, Need For Follow Up Family Education/Counseling: No Family Present SEPSIS Sepsis Screen Date sepsis recognized/suspect: Jan 16, 2025 Time Sepsis recognized/suspect: 2000 Recent Procedure: No On Antibiotic Therapy: No Respiratory Rate >20: No Heart Rate >90: Yes Temp<36 C (96.8 F) or >38.3 C: No SBP <90 or MAP <65 mmHG: No New Acute Mental Status Change: No Is the patient on CPAP, BIPAP,: No Physician Orders Chest Two Views Routine (01/16/25 20:11) Vital Signs Date Time Temp Pulse Resp B/P (MAP) Pulse Ox O2 Delivery O2 Flow Rate FiO2 01/16/25 20:01 98.9 93 18 147/109 98 98.9 Laboratory Tests Test 01/16/25 20:18 White Blood Count 10.1 10^3/uL (4.4-10.8) Departure 1 Departure Time of Disposition: 20:54 Impression: Primary Impression: Mercury poisoning Qualified Codes: T56.1X1A - Toxic effect of mercury and its compounds, accidental (unintentional), initial encounter Additional Impression: Elevated liver enzymes Disposition: HOME / SELF CARE / HOMELESS Condition: Stable Discharged With: Self Critical Care Note Critical Care Time?: No Stability Stability form required: No Heart Score Heart Score: Heart Score Response (Comments) Value History N/A 0 EKG N/A 0 Age <45 0 Risk Factors N/A 0 Troponin N/A 0 Total 0 GUMARO CRAMER Jan 16, 2025 20:47
[2025-01-16 21:17] VITALS: BP 141/100; PULSE 98; RESP 16; TEMP 98.5; O2SAT 96
== END 2025-01-16 21:17 | disposition home or self-care (01) ==
LOC: ER 19:58
DX: R42 Dizziness and giddiness (principal); T56.1X1A Toxic effect of mercury and its compounds, accidental (unintentional), initial encounter; R74.01 Elevation of levels of liver transaminase levels; F17.210 Nicotine dependence, cigarettes, uncomplicated; I10 Essential (primary) hypertension; Y92.89 Other specified places as the place of occurrence of the external cause
CPT/HCPCS: 36415; 71046; 80053; 85025

== ENCOUNTER 2025-02-07 15:52 | Emergency (ER) | payer MEDICAID ==
[~2025-02-07] VITALS: Ht 175.3 cm; Wt 82.0 kg
--- NOTE | 2025-02-07 16:07 | ED.PDOC ---
History of Present Illness HPI Comments 29-year-old male presents to the ER with a prior medical history of anxiety, depression, hypertension, schizophrenia and a chief complaint of altered mental status. Patient reports that his schizophrenia is worsening by being more confused out of it and non functional. Patient does not have auditory or v isual hallucinations, nor SI/HI. Denies any other symptoms at this time. Denies chills, fever, N/V/D, SOB, CP. No other associated symptoms, modifiers, recent injuries or sick contacts present at this time. Time Seen by MD: 16:00 Primary Care Provider: NONE Reviewed Notes: Nurses Notes, Medications, Allergies Allergies: Coded Allergies: NO KNOWN ALLERGIES (Unverified , 09/25/22) Home Meds Active Scripts Trazodone Hcl (Trazodone Hcl) 150 Mg Tab, 1 TAB PO QPM for 90 Days, #90 TAB 2 Refills Prov:MIK LOWRY MD 08/27/24 Benztropine Mesylate (Benztropine Mesylate) 0.5 Mg Tab, 0.5 MG PO DAILY, #90 TAB 3 Refills Prov:MIK LOWRY MD 08/26/24 Risperidone (Risperdal) 2 Mg Tab, 2 MG PO DAILY for 90 Days, #90 TAB Prov:MIK LOWRY MD 08/26/24 Hydrocodone-Acetaminophen (Hydrocodone Bitartrate/AC 5-325 mg) 1 Tab Tab, 1 TAB PO Q4HP PRN, #20 TAB Prov:ROSALVA BILL MD 07/01/24 Risperidone (Risperidone) 2 Mg Tab, 1 TAB PO DAILY, #30 TAB Prov:ROSALVA BILL MD 07/01/24 Gabapentin (Once-Daily) (Gabapentin) 300 Mg Tab, 300 MG PO Q6HP PRN, #60 TAB Prov:MIK LOWRY MD 06/25/24 Cyclobenzaprine HCl (Cyclobenzaprine Hydrochlo) 10 Mg Tab, 1 TAB PO Q8HR, #15 TAB As needed for muscle spasm Prov:BHAVANI FERRARA Q [employer] COUNTER REPRESENTATIVE 01/14/23 Ibuprofen Micronized (Ibuprofen) 800 Mg Tab, 1 TAB PO Q8HR, #30 TAB As needed for pain take it with food Prov:BHAVANI FERRARA Q [employer] COUNTER REPRESENTATIVE 01/14/23 Reported Medications Benztropine Mesylate (Benztropine Mesylate) 0.5 Mg Tab, 1 TAB PO 01/25/23 Information Source: Patient Mode of Arrival: EMS Severity: Moderate Timing: Hours Duration: Since onset, Hours Prehospital treatment: None Past Medical History PAST MEDICAL HISTORY: Anxiety, Depression, HTN, Schizophrenia Surgical History: Denies all surgeries Family History Family History: Reviewed,noncontributory to illness, Unknown Social History Smoker: Cigarettes, Less Than 1 Pack/Day Alcohol: Denies ETOH Use Drugs: Marijuana Lives In: Home Unable to Obtain due to: Altered Mental Status All Other Systems: Reviewed and Negative Physical Exam Exam Comments Withdrawn affect General Appearance: No Apparent Distress, Normal HEENT: Normal ENT Inspection, Pharynx Normal, TMs Normal Neck: Full Range of Motion, Non-Tender, Normal, Normal Inspection Respiratory: Chest Non-Tender, Lungs Clear, No Accessory Muscle Use, No Respiratory Distress, Normal Breath Sounds Cardiovascular: No Edema, No JVD, No Murmur, No Gallop, Normal Peripheral Pulses, Regular Rate/Rhythm Breast Exam: Deferred Gastrointestinal: No Organomegaly, Non Tender, No Pulsatile Mass, Normal Bowel Sounds, Soft Genitalia: Deferred Pelvic: Deferred Rectal: Deferred Extremities: No calf tenderness, Normal capillary refill, Normal inspection, Normal range of motion, Non-tender, No pedal edema Musculoskeletal : Apperance: Normal Neurologic: Alert, union organiser II-XII nml as Tested, No Motor Deficits, Normal Affect, Normal Mood, No Sensory Deficits Cerebellar Function: Normal Reflexes: Normal Skin: Dry, Normal Color, Warm Lymphatic: No Adenopathy Was a procedure done? Was a procedure done?: No Differential Dx Considerations may include: Schizophrenia, psychosis X-Ray, Labs, Meds, VS Vital Signs Date Time Temp Pulse Resp B/P (MAP) Pulse Ox O2 Delivery O2 Flow Rate FiO2 02/07/25 16:53 98.5 84 16 141/92 (108) 96 98.5 02/07/25 16:53 84 16 96 Room Air 02/07/25 16:23 98.0 70 18 120/85 100 98.0 Lab Test 02/07/25 16:55 02/07/25 16:17 Range/Units Urine Color Light-yellow Yellow Urine Clarity Clear Clear Urine pH 6.5 5.0-9.0 Urine Specific Moss 1.020 1.001-1.035 Urine Protein Negative Negative Urine Ketones Negative Negative Urine Blood Negative Negative /uL Urine Nitrite Negative Negative Urine Bilirubin Negative Negative Urine Urobilinogen Normal Negative mg/dL Urine Leukocyte Esterase Negative Negative /uL Urine RBC 1 0 - 3 /hpf Urine Microscopic WBC 1 0-3 /HPF Urine Squamous Epithelial Cells None seen <5 /hpf Urine Bacteria None seen None Seen /hpf Urine Glucose Normal Normal mg/dL Urine Opiates Screen Neg NEGATIVE Urine Fentanyl Screen Neg NEGATIVE Urine Barbiturates Screen Neg NEGATIVE Urine Phencyclidine Screen Neg NEGATIVE Urine Amphetamines Screen Neg NEGATIVE Urine Benzodiazepines Screen Neg NEGATIVE Urine Cocaine Screen Neg NEGATIVE Urine Cannabinoids Screen Neg NEGATIVE White Blood Count 7.5 4.4-10.8 10^3/uL Red Blood Count 5.37 4.5-5.90 10^6/uL Hemoglobin 16.4 13.5-17.5 g/dL Hematocrit 48.0 41.0-53.0 % Mean Corpuscular Volume 89.3 80.0-100.0 fL Mean Corpuscular Hemoglobin 30.5 28.0-32.0 pg Mean Corpuscular Hemoglobin Concent 34.2 32.0-36.0 g/dL Red Cell Distribution Width 13.2 11.8-14.3 % Platelet Count 231 140-450 10^3/uL Mean Platelet Volume 8.3 6.9-10.8 fL Neutrophils (%) (Auto) 62.9 37.0-80.0 % Lymphocytes (%) (Auto) 24.3 10.0-50.0 % Monocytes (%) (Auto) 9.3 0.0-12.0 % Eosinophils (%) (Auto) 3.0 0.0-7.0 % Basophils (%) (Auto) 0.5 0.0-2.0 % Neutrophils # (Auto) 4.7 1.6-8.6 10 ^3/uL Lymphocytes # (Auto) 1.8 0.4-5.4 10 ^3/uL Monocytes # (Auto) 0.7 0-1.3 10 ^3/uL Eosinophils # (Auto) 0.2 0-0.8 10 ^3/uL Basophils # (Auto) 0 0-0.2 10 ^3/uL Nucleated Red Blood Cells 0.1 % Sodium Level 142 136-145 mmol/L Potassium Level 4.3 3.5-5.1 mmol/L Chloride Level 105 98-107 mmol/L Carbon Dioxide Level 27 20-31 mmol/L Anion Gap 10 5-15 Blood Urea Nitrogen 8 L 9-23 mg/dL Creatinine 1.02 0.700-1.30 mg/dL Glomerular Filtration Rate Calc 101 >90 mL/min BUN/Creatinine Ratio 7.8 L 10.0-20.0 Serum Glucose 75 74-106 mg/dL Calcium Level 9.6 8.7-10.4 mg/dL Salicylates Level < 3.0 -30 mg/dL Acetaminophen Level < 2.0 L 10.0-20.0 UG/ML Plasma/Serum Blood Alcohol < 3.0 <10 mg/dL Time of 1ST Reevaluation: 16:30 Reevaluation 1ST: Unchanged Patient Education/Counseling: Diagnosis, Treatment, Prognosis Family Education/Counseling: No Family Present SEPSIS Sepsis Screen Physician Orders Soc Telemed Psych Consult (02/07/25 16:02) Vital Signs Date Time Temp Pulse Resp B/P (MAP) Pulse Ox O2 Delivery O2 Flow Rate FiO2 02/07/25 16:53 98.5 84 16 141/92 (108) 96 98.5 02/07/25 16:53 84 16 96 Room Air 02/07/25 16:23 98.0 70 18 120/85 100 98.0 Laboratory Tests Test 02/07/25 16:17 White Blood Count 7.5 10^3/uL (4.4-10.8) Departure 1 Departure Time of Disposition: 17:43 (Patient reports he is now feeling well and wants to leave. He denies any SI HI AH or VH. We will discharge patient home with outpatient follow up) Impression: Primary Impression: Schizophrenia Disposition: 01 HOME / SELF CARE / HOMELESS Condition: Stable Additional Instructions: Your workup today was benign. You can take Tylenol or Motrin as needed for pain. You should follow up with your regular doctor within 1 week. You should stay well rested and well hydrated. If your symptoms worsen or you have any other concerns please return to the emergency room. Discharged With: Self Critical Care Note Critical Care Time?: No Stability Stability form required: No I personally scribed for OK LEMUS MD ([email or web address]) on 02/07/25 at 16:07. Electronically submitted by Raymundo Marie ([email or web address]). OK LEMUS MD Feb 07, 2025 16:07
[2025-02-07 16:41] LABS: Hematocrit 48.0 % (41.0-53.0); Hemoglobin 16.4 g/dL (13.5-17.5); Mean Corpuscular Hemoglobin 30.5 pg (28.0-32.0); Mean Corpuscular Volume 89.3 fL (80.0-100.0); Nucleated Red Blood Cells % 0.1 %
[2025-02-07 16:47] LABS: Chloride 105 mmol/L (98-107); Potassium 4.3 mmol/L (3.5-5.1); Sodium 142 mmol/L (136-145)
[2025-02-07 16:48] LABS: Anion Gap 10 (5-15); Carbon Dioxide 27 mmol/L (20-31)
[2025-02-07 16:49] LABS: Calcium 9.6 mg/dL (8.7-10.4)
[2025-02-07 16:53] VITALS: BP 141/92; PULSE 84; RESP 16; TEMP 98.5; O2SAT 96
[2025-02-07 16:54] LABS: BUN/Creatinine Ratio 7.8 (10.0-20.0); Glucose 75 mg/dL (74-106)
[2025-02-07 17:00] LABS: Acetaminophen < 2.0 UG/ML (10.0-20.0); Salicylate < 3.0 mg/dL (-30)
[2025-02-07 17:01] LABS: Blood Urea Nitrogen 8 mg/dL (9-23)
[2025-02-07 17:16] LABS: Urine Protein, UAD Negative (Negative)
[2025-02-07 17:32] LABS: Amphetamine Screen, Urine Neg (NEGATIVE); Barbiturate Scree,Urine Neg (NEGATIVE); Benzodiazephine Screen, Urine Neg (NEGATIVE); Cannabinoid Screen, Urine Neg (NEGATIVE); Cocaine Screen, Urine Neg (NEGATIVE); Opiate Scree,Urine Neg (NEGATIVE); Phencyclidine Screen, Urine Neg (NEGATIVE)
== END 2025-02-07 18:42 | disposition home or self-care (01) ==
LOC: ER 15:52 → EDBD 15:52 → ER 18:40
DX: F20.9 Schizophrenia, unspecified (principal); F12.90 Cannabis use, unspecified, uncomplicated; F17.210 Nicotine dependence, cigarettes, uncomplicated; F41.9 Anxiety disorder, unspecified; F32.A Depression, unspecified; I10 Essential (primary) hypertension; Z79.899 Other long term (current) drug therapy
CPT/HCPCS: 36415; 80048; 80307; 80320; 80329; 81001; 85025